=== PATIENT | male | born 1945 | race Caucasian/White ===

== ENCOUNTER 2024-04-01 14:43 | Inpatient (IN) | payer OTHER, MEDICARE ==
--- NOTE | 2024-04-01 16:52 | ED ---
General Adult HPI - General Chief complaint: Extremity Problem,Nontraumatic Stated complaint: Toe wounds, blockage in legs Time Seen by Provider: 04/01/24 15:32 Source: patient, family Mode of arrival: wheelchair Limitations: no limitations - History of Present Illness Initial comments: Pleasant 78-year-old gentleman with past medical history of CAD status post coronary bypass presenting today for left lower extremity wound. Patient was sent over by wound clinic in [place] after he was has been treated for bilateral lower extremity wounds on his toes. He has had worsening redness in the left toes and the wound has been nonhealing despite 10-day course of Bactrim. Patient's doctor sent patient to ED out of concern for "a blood clot" due to poor wound healing. The patient is not on Plavix, aspirin or blood thinners. He denies any chest pain or shortness of breath. Denies fevers or chills. 2 days ago he did have a few episodes of nonbloody nonbilious emesis but otherwise currently denies complaints. States he has some RUQ discomfort but attributes this to multiple episodes of vomiting. Nausea and vomiting have since resolved. - Related Data Home Medications Medication Instructions Recorded Confirmed Acetaminophen [Tylenol] 650 mg PO TID PRN 04/01/24 04/01/24 Aspirin EC [Ecotrin Low Dose] 81 mg PO DAILY 04/01/24 04/01/24 Cholecalciferol [Vitamin D3 (25 25 mcg PO DAILY 04/01/24 04/01/24 Mcg = 1000 Iu)] Dextrose Chew [Glucose Chew Tab] 16 gm PO DAILY PRN 04/01/24 04/01/24 Gabapentin [Neurontin] 100 mg PO BID 04/01/24 04/01/24 Insulin Glargine-Yfgn [Semglee 22 unit SQ BID 04/01/24 04/01/24 (Yfgn) Pen] lisinopriL [Zestril] 5 mg PO DAILY 04/01/24 04/01/24 oxyCODONE HCL [Roxicodone] 5 mg PO Q6H PRN 04/01/24 04/01/24 Allergies Allergy/AdvReac Type Severity Reaction Status Date / Time No Known Allergies Allergy Verified 04/01/24 18:54 Review of Systems ROS Statement: Those systems with pertinent positive or pertinent negative responses have been documented in the HPI. ROS Other: All systems not noted in ROS Statement are negative. Past Medical History Past Medical History: Diabetes Mellitus, Hypertension Past Surgical History: Coronary Bypass/CABG Smoking Status: Former smoker Past Alcohol Use History: None Reported Past Drug Use History: None Reported General Exam - General Exam Comments Initial Comments: PE: CONSTITUTIONAL: No apparent distress, well appearing SKIN: Warm, dry, no jaundice, hives or petechiae; erythema circumference in the distal aspect of the left lower extremity encompassing the toes, black-brown wound/eschar at the distal aspect of the first and second metatarsals, greater than 3 second capillary refill. Small brown eschar at the distal aspect of the right first metatarsal that appears well-healing EYES: Pupils are equally round, extraocular movements intact without nystagmus, clear conjunctiva, non-icteric sclera HENT: Normocephalic, atraumatic, moist mucus membranes, oropharynx clear without exudates NECK: , Full range of motion, normal appearance PULMONARY: Clear to auscultation without wheezes, rhonchi, or rales, normal excursion, no accessory muscle use and no stridor CARDIOVASCULAR: Regular rate, rhythm, normal S1 and S2. No appreciated murmurs, rubs or gallops. Strong radial pulses with intact distal perfusion. No lower extremity edema GASTROINTESTINAL: Soft, active bowel sounds throughout, non-tender, non- distended, no palpable masses, no rebound or guarding. No hepatosplenomegaly, negative collins's sign GENITOURINARY: MUSCULOSKELETAL: Mild swelling of the left ankle, no TTP, no deformity faint DP and PT pulses found with doppler in bilateral LE, toes are warm and appear well perfused bilaterally, no crepitus palpated, extremities have no gross deformity, no edema, redness, or swelling beyond swelling and redness at distal LLE, . No calf swelling NEUROLOGIC:_a/o x 3, GCS 15, normal mentation and speech. Moves all extremities x 4 without motor or sensory deficit PSYCHIATRIC:_normal mood and affect, thought process is clear and linear Limitations: no limitations Course Vital Signs 04/01/24 04/01/24 14:56 17:49 Temperature 97.5 F L Pulse Rate 106 H 95 Respiratory 20 20 Rate Blood Pressure 121/77 121/67 O2 Sat by Pulse 98 96 Oximetry Medical Decision Making - Medical Decision Making Was pt. sent in by a medical professional or institution ([facility], [employer], urgent care, hospital, or fdc...) When possible be specific @ -Patient was sent over from his physician at the wound clinic in [place] Did you speak to anyone other than the patient for history (EMS, parent, family, police, friend...)? What history was obtained from this source I spoke with patient's son who assisted in providing history Did you review nursing and triage notes (agree or disagree)? Why? @ -I reviewed and agree with nursing and triage notes Were old charts reviewed (outside hosp., previous admission, EMS record, old EKG, old radiological studies, urgent care reports/EKG's, fdc records)? Report findings @Medical records reviewed no prior or recent visits to review Differential Diagnosis (chest pain, altered mental status, abdominal pain women, abdominal pain men, vaginal bleeding, weakness, fever, dyspnea, syncope, headache, dizziness, GI bleed, back pain, seizure, CVA, palpatations, mental health, musculoskeletal)? Differential diagnosis remains broad however top considerations include cellulitis, osteomyelitis, dry gangrene, peripheral arterial disease, diabetic foot ulcer this is not an all inclusive list EKG interpreted by me (3pts min.). @ -As above X-rays interpreted by me (1pt min.). @ -None done CT interpreted by me (1pt min.). @ -Contrast appears to perfuse through the bilateral distal LE to dorsal pedis arteries What testing was considered but not performed or refused? (CT, X-rays, U/S, labs)? Why? @ -Heparin was considered out of concern for periveral arterial occlusion however distal aspects of extremities are still pink and warm, there does not appear to be any complete occlusion on CT Did you discuss the management of the patient with other professionals (professionals i.e. M[facility] Mishra, [employer], lab, RT, psych nurse, licensed social worker, spray foam installer, teacher, community arts officer, registered nurse hh case manager)? Give summary @ -No Was smoking cessation discussed for >3mins.? @ -No Was critical care preformed (if so, how long)? @ -No Were there social determinants of health that impacted care today? How? (Homelessness, low income, unemployed, alcoholism, drug addiction, transportation, low edu. Level, literacy, decrease access to med. care, detention, rehab)? @ -No Was there de-escalation of care discussed even if they declined (Discuss DNR or withdrawal of care, Hospice)? @ -No What co-morbidities impacted this encounter? (DM, HTN, Smoking, COPD, CAD, Cancer, CVA, ARF, Chemo, Hep., AIDS, mental health diagnosis, sleep apnea, mo rbid obesity)? CAD, PAD, DM Was patient admitted / discharged? Hospital course, mention meds given and route, prescriptions, significant lab abnormalities, going to OR and other pertinent info. @Admission- This is a pleasant 78 y/o gentleman presenting with his son for nonhealing left foot wound despite adequate wound care and completion of 10 day course abx, w/ additional concern for peripheral arterial disease. Patient well appearing on my assessment, resting comfortably. Erythema to 1-4th metatarsals on left foot, black wound eschar to distal 1st and 2nd metatarsals, slowed cap refill in left foot, right foot has brownish eschar to distal 1st metatarsal without surrounding erythema, faint DP and PT pulses doppler bilaterally. Patient is nontoxic-appearing though he does have respiratory of 20 and tachycardia with infectious source so blood cultures to be obtained, cefepime will be given, 30 cc/kg bolus not given as patient does not appear dehydrated, is not febrile, not hypotensive. Plan for CT angio of the bilateral lower extremities, anticipate admission. Patient noted to have GFR 38, patient does have history of stage III kidney disease, so US of the LE was considered in leiu of CT angio however I was contacted by US, the US needed to perform necessary testing malfunctioning. In order to ensure patient does not require emergent vascular consultation, CT angio will be obtained. Labs significant for creatinine 1.72, AST/ALT 80/288, CRP 22.4, white blood cell count 12.7. Lactic 1.1. CT angiogram shows severe atherosclerotic disease of the bilateral lower extremities, notes gas in the plantar aspect of the soft tissue of the left foot. Patient does not have crepi tus, this does not appear to be rapidly progressing and he is nontoxic-appearing however due to gas noted will give a dose of vancomycin, clindamycin and Flagyl in addition to cefepime. Plan for admission for admission for LLE wound that failed outpatient abx, vascular surgery and podiatry consults. US RUQ ordered due to elevated LFTs and patient's hx vomiting x2 days ago. Patient has benign abdominal exam here with negative collins;s sign. Updated patient to plan for admission and pending [facility]. Currently denies any needs at this time. Case discussed with [facility], who kindly accepts patient for admission. Of note, US resulted while patient boarding in ED. Does show Hydropic gallb ladder with echogenic sludge gallbladder wall is not thickened, 3.1 mm with pericholecysticedema and trace fluid potential interrogation common bile duct was obscured by bowel gas no definite intrahepatic biliary dilation. Will add general surgery consult. Undiagnosed new problem with uncertain prognosis? @ -No Drug Therapy requiring intensive monitoring for toxicity (Heparin, Nitro, Insuli n, Cardizem)? @ -No Were any procedures done? @ -No Diagnosis/symptom? @ -PAD, diabetic foot wound, cellulitis, elevated LFTs Acute, or Chronic, or Acute on Chronic? acute Uncomplicated (without systemic symptoms) or Complicated (systemic symptoms)? complicated Side effects of treatment? @ -No Exacerbation, Progression, or Severe Exacerbation? @ -No Poses a threat to life or bodily function? How? (Chest pain, USA, GA, pneumonia, PE, COPD, DKA, ARF, appy, cholecystitis, CVA, Diverticulitis, Homicidal, Suicidal, threat to staff... and all critical care pts) Yes, if allowed to continue untreated could result in loss of limb/ LLE - Lab Data Result diagrams: 04/01/24 17:24 04/01/24 17:24 Lab Results 04/01/24 04/01/24 04/01/24 Range/Units 17:24 17:24 17:24 WBC 12.7 H (3.8-10.6) k/uL RBC 4.13 L (4.30-5.90) m/uL Hgb 11.5 L (13.0-17.5) gm/dL Hct 36.1 L (39.0-53.0) % MCV 87.3 (80.0-100.0) fL MCH 27.8 (25.0-35.0) pg MCHC 31.8 (31.0-37.0) g/dL RDW 13.3 (11.5-15.5) % Plt Count 295 (150-450) k/uL MPV 8.0 Neutrophils % 90 % Lymphocytes % 5 % Monocytes % 4 % Eosinophils % 0 % Basophils % 0 % Neutrophils # 11.4 H (1.3-7.7) k/uL Lymphocytes # 0.6 L (1.0-4.8) k/uL Monocytes # 0.5 (0-1.0) k/uL Eosinophils # 0.0 (0-0.7) k/uL Basophils # 0.0 (0-0.2) k/uL Hypochromasia Slight PT 11.9 (10.0-12.5) sec INR 1.1 (<1.2) APTT 23.9 (22.0-30.0) sec Sodium 140 (137-145) mmol/L Potassium 4.1 (3.5-5.1) mmol/L Chloride 111 H (98-107) mmol/L Carbon Dioxide 21 L (22-30) mmol/L Anion Gap 8 mmol/L BUN 39 H (9-20) mg/dL Creatinine 1.72 H (0.66-1.25) mg/dL Est GFR (CKD-EPI)AfAm 44 (>60 ml/min/1.73 sqM) Est GFR (CKD-EPI)NonAf 38 (>60 ml/min/1.73 sqM) Glucose 164 H (74-99) mg/dL Plasma Lactic Acid Erwin (0.7-2.0) mmol/L Calcium 9.0 (8.4-10.2) mg/dL Total Bilirubin 0.9 (0.2-1.3) mg/dL AST 80 H (17-59) U/L ALT 288 H (4-49) U/L Alkaline Phosphatase 320 H (38-126) U/L C-Reactive Protein 22.4 H (<1.0) mg/dL Total Protein 7.1 (6.3-8.2) g/dL Albumin 3.4 L (3.5-5.0) g/dL 04/01/24 Range/Units 17:24 WBC (3.8-10.6) k/uL RBC (4.30-5.90) m/uL Hgb (13.0-17.5) gm/dL Hct (39.0-53.0) % MCV (80.0-100.0) fL MCH (25.0-35.0) pg MCHC (31.0-37.0) g/dL RDW (11.5-15.5) % Plt Count (150-450) k/uL MPV Neutrophils % % Lymphocytes % % Monocytes % % Eosinophils % % Basophils % % Neutrophils # (1.3-7.7) k/uL Lymphocytes # (1.0-4.8) k/uL Monocytes # (0-1.0) k/uL Eosinophils # (0-0.7) k/uL Basophils # (0-0.2) k/uL Hypochromasia PT (10.0-12.5) sec INR (<1.2) APTT (22.0-30.0) sec Sodium (137-145) mmol/L Potassium (3.5-5.1) mmol/L Chloride (98-107) mmol/L Carbon Dioxide (22-30) mmol/L Anion Gap mmol/L BUN (9-20) mg/dL Creatinine (0.66-1.25) mg/dL Est GFR (CKD-EPI)AfAm (>60 ml/min/1.73 sqM) Est GFR (CKD-EPI)NonAf (>60 ml/min/1.73 sqM) Glucose (74-99) mg/dL Plasma Lactic Acid Ewrin 1.1 (0.7-2.0) mmol/L Calcium (8.4-10.2) mg/dL Total Bilirubin (0.2-1.3) mg/dL AST (17-59) U/L ALT (4-49) U/L Alkaline Phosphatase (38-126) U/L C-Reactive Protein (<1.0) mg/dL Total Protein (6.3-8.2) g/dL Albumin (3.5-5.0) g/dL Disposition Clinical Impression: Cellulitis, Peripheral vascular disease, Elevated LFTs, Diabetic foot ulcer Disposition: ADMITTED IP TO THIS [facility] Condition: Good
[2024-04-01 17:35] LABS: Basophils % (A) 0 %; Eosinophils % (A) 0 %; HCT 36.1 % (39.0-53.0); HGB 11.5 gm/dL (13.0-17.5); Hypochromasia Slight; Lymphocytes # (A) 0.6 k/uL (1.0-4.8); Lymphocytes % (A) 5 %; MCH 27.8 pg (25.0-35.0); MCHC 31.8 g/dL (31.0-37.0); MCV 87.3 fL (80.0-100.0); Monocytes # (A) 0.5 k/uL (0-1.0); Monocytes % (A) 4 %; Neutrophils # (A) 11.4 k/uL (1.3-7.7); Neutrophils % (A) 90 %; Platelet Count 295 k/uL (150-450); RBC 4.13 m/uL (4.30-5.90); RDW 13.3 % (11.5-15.5); WBC 12.7 k/uL (3.8-10.6)
[2024-04-01 17:44] LABS: INR 1.1 (<1.2); Partial Thromboplastin Time 23.9 sec (22.0-30.0); Prothrombin Time 11.9 sec (10.0-12.5)
[2024-04-01] MEDS: CEFEPIME 2 GM in SODIUM CHLORIDE 0.9% 100 ML IVPB STA (17:48)
[2024-04-01 18:09] LABS: ALT 288 U/L (4-49); AST 80 U/L (17-59); African American GFR (CKD) 44 (>60 ml/min/1.73 sqM); Albumin 3.4 g/dL (3.5-5.0); Alkaline Phosphatase 320 U/L (38-126); Anion Gap 8 mmol/L; Blood Urea Nitrogen 39 mg/dL (9-20); Carbon Dioxide 21 mmol/L (22-30); Chloride 111 mmol/L (98-107); Glucose 164 mg/dL (74-99); Non-African American GFR(CKD) 38 (>60 ml/min/1.73 sqM); Potassium 4.1 mmol/L (3.5-5.1); Sodium 140 mmol/L (137-145); Total Bilirubin 0.9 mg/dL (0.2-1.3); Total Protein 7.1 g/dL (6.3-8.2)
[2024-04-01 18:23] LABS: C Reactive Protein 22.4 mg/dL (<1.0)
--- NOTE | 2024-04-01 20:44 | CT ---
EXAMINATION TYPE: CT angio lower extremity BILAT CT DLP: 786.6 mGycm, Automated exposure control for dose reduction was used. DATE OF EXAM: 04/01/2024 8:24 PM COMPARISON: . . CLINICAL INDICATION:Male, 78 years old with history of decreased pulses, PAD, L>R; PHH, non healing w ounds to both feet, decreased pulse TECHNIQUE: Multiple thin slice sub-millimeter images were obtained after administration of contrast. 3-D reconstructed images and maximum intensity projection images were obtained. CT angio lower extre mity BILAT CT Contrast: Contrast used:80 mL of Isovue 370 with IV Contrast, Oral contrast used: None FINDINGS: CTA Lower extremities: Right: The common femoral and superficial femoral arteries are patent, with focal moderate stenosis o f the distal superficial femoral artery. The popliteal artery is patent. The tibioperoneal trunk as w ell as the origins of the anterior tibial, posterior tibial, and peroneal artery are patent. There is extensive atherosclerotic disease identified of the vessels extending inferiorly with multifocal mod erate to severe stenoses and minimal contrast seen in the distal vessels. Left: The common femoral and superficial femoral arteries are patent. The popliteal artery is patent. Extensive atherosclerotic disease of the anterior tibial, posterior tibial, and peroneal artery with multifocal severe stenoses identified. The anterior tibial artery is seen crossing the ankle joint w ith diminutive appearance of the posterior tibial at the level the ankle. Contrast opacification does dilute at the level of the feet, with suspected additional multifocal narrowings identified of the p lantar vessels. Scattered colonic diverticula are identified. Of note, scattered foci of gas are seen within the plantar surface of the left foot. IMPRESSION 1. Extensive atherosclerotic disease of the lower extremity arterial vessels involving the anterior tibial, posterior tibial, and peroneal arteries bilaterally with multifocal severe stenoses. 2. Gas seen within the soft tissues along the plantar surface of the left foot, likely related to un derlying wound as per history. 3. Colonic diverticulosis. [facility], , 04/01/2024 8:42 PM
[2024-04-01] MEDS: GABAPENTIN 100 MG CAP PO SCH (21:19)
[2024-04-01] MEDS ORDERED: VANCOMYCIN IV PER PHARMACY 1 EACH MISC MISCELLANE PRN (21:30)
[2024-04-01] MEDS ORDERED: CALCIUM CARBONATE 500 MG CHEWABLE PO PRN (21:34)
[2024-04-01] MEDS ORDERED: ACETAMINOPHEN TAB 325 MG TAB PO PRN (21:34)
[2024-04-01] MEDS ORDERED: NALOXONE 0.4 MG/ML 1 ML VIAL IV PRN (21:34)
[2024-04-01] MEDS ORDERED: MAG HYDROX/AL HYDROX/SIMETH 30 ML CUP PO PRN (21:34)
[2024-04-01] MEDS: HEPARIN SODIUM,PORCINE 5,000 UNIT/ML 1 ML VIAL SQ SCH (23:11)
[2024-04-01] MEDS: CLINDAMYCIN 600 MG in DEXTROSE 5% IN WATER 50 ML IVPB SCH (23:12)
--- NOTE | 2024-04-02 00:09 | US ---
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 COMPARISON: No relevant prior studies available. FINDINGS: Liver: The liver measures 12.5 cm in length. Gallbladder: The gallbladder is hydropic in appearance and fully distended. Echogenic sludge noted. The gallbladder wall measures 3.1 mm with associated pericholecystic edema and trace fluid. Potential interrogation for sonographic Gutierrez sign was not documented/performed. Common bile duct: The common bile duct is obscured by bowel gas. No definite intrahepatic biliary dilatation. No stones. Pancreas: The pancreas is obscured by bowel gas pattern. Right kidney: The right kidney measures 11.8 x 6.1 x 5.4 cm. No stones. No hydronephrosis. Free fluid: No free fluid. IMPRESSION: 1. The gallbladder is hydropic in appearance and fully distended. Echogenic sludge noted. The gallbladder wall measures 3.1 mm with associated pericholecystic edema and trace fluid. Potential interrogation for sonographic Gutierrez sign was not documented/performed. Please correlate clinically. 2. The common bile duct is obscured by bowel gas. No definite intrahepatic biliary dilatation.
[2024-04-02] MEDS: metroNIDAZOLE-NS PMX 500 MG in SALINE 1 100ML.BAG IVPB SCH (00:44)
[2024-04-02] MEDS: VANCOMYCIN 1,500 MG in SODIUM CHLORIDE 0.9% 500 ML 500 ML IVPB ONE (02:18)
[2024-04-02 06:08] LABS: Basophils % (A) 0 %; Eosinophils # (A) 0.1 k/uL (0-0.7); Eosinophils % (A) 1 %; HCT 32.3 % (39.0-53.0); HGB 10.1 gm/dL (13.0-17.5); Hypochromasia Slight; Lymphocytes # (A) 1.1 k/uL (1.0-4.8); Lymphocytes % (A) 10 %; MCH 27.6 pg (25.0-35.0); MCHC 31.3 g/dL (31.0-37.0); MCV 88.2 fL (80.0-100.0); Mean Platelet Volume 8.4; Monocytes # (A) 0.5 k/uL (0-1.0); Monocytes % (A) 5 %; Neutrophils # (A) 8.9 k/uL (1.3-7.7); Neutrophils % (A) 83 %; Platelet Count 255 k/uL (150-450); RBC 3.66 m/uL (4.30-5.90); RDW 13.4 % (11.5-15.5); WBC 10.7 k/uL (3.8-10.6)
[2024-04-02 06:36] LABS: African American GFR (CKD) 46 (>60 ml/min/1.73 sqM); Anion Gap 5 mmol/L; Blood Urea Nitrogen 34 mg/dL (9-20); Calcium 8.4 mg/dL (8.4-10.2); Carbon Dioxide 22 mmol/L (22-30); Chloride 113 mmol/L (98-107); Glucose 105 mg/dL (74-99); Non-African American GFR(CKD) 40 (>60 ml/min/1.73 sqM); Potassium 3.7 mmol/L (3.5-5.1); Sodium 140 mmol/L (137-145)
[2024-04-02 07:40] LABS: Glucose,Whole Blood 97 mg/dL (70-110)
[2024-04-02] MEDS: traMADol 50 MG TAB PO PRN (07:54)
[2024-04-02] MEDS: CHOLECALCIFEROL 25 MCG (1000 IU) TABLET PO SCH (07:54)
[2024-04-02] MEDS: ASPIRIN 81 MG PO SCH (07:55)
[2024-04-02] MEDS: lisinopriL 5 MG TAB PO SCH (07:56)
[2024-04-02] MEDS: FAMOTIDINE 20 MG TAB PO SCH (07:56)
[2024-04-02] MEDS: INSULIN DETEMIR (LEVEMIR) 100 UNIT/ML SYR SQ SCH (08:06)
[2024-04-02 09:41] LABS: ALT 210 U/L (4-49); AST 59 U/L (17-59); African American GFR (CKD) 47 (>60 ml/min/1.73 sqM); Albumin/Globulin Ratio 0.9; Alkaline Phosphatase 278 U/L (38-126); Anion Gap 9 mmol/L; Blood Urea Nitrogen 34 mg/dL (9-20); Calcium 8.6 mg/dL (8.4-10.2); Carbon Dioxide 22 mmol/L (22-30); Chloride 110 mmol/L (98-107); Globulin 3.3 g/dL; Glucose 112 mg/dL (74-99); Non-African American GFR(CKD) 40 (>60 ml/min/1.73 sqM); Potassium 3.5 mmol/L (3.5-5.1); Sodium 141 mmol/L (137-145); Total Bilirubin 0.7 mg/dL (0.2-1.3); Total Protein 6.3 g/dL (6.3-8.2)
[2024-04-02] MEDS: CEFEPIME 2 GM in SODIUM CHLORIDE 0.9% 100 ML IVPB SCH (11:33)
--- NOTE | 2024-04-02 12:37 | P.GSCN ---
History of Present Illness Consult date: 04/02/24 History of present illness: CHIEF COMPLAINT: Nonhealing feet wounds HISTORY OF PRESENT ILLNESS: This is a 78-year-old male with wounds on the bilateral lower extremities. He follows at the wound care clinic at [facility]. They recommended that patient comes to the ER for further evaluation due to nonhealing wounds on the feet even after antibiotic treatment. Surgical service has been consulted in regards to hydropic gallbladder. Patient reports having multiple episodes of vomiting on Friday earlier this week. After the vomiting patient had pain across the upper abdomen. He denies eating anything that had spilled. He denies any sick contacts. He denies any fever chills or sweats. But reports after he was done vomiting the abdominal pain has resolved and he is now tolerating diet. He reports regular bowel movements. An abdominal ultrasound had been completed which had shown a hydropic gallbladder with sludge and pericholecystic edema with trace fluid. Patient currently denies any abdominal pain. He did have some mildly elevated LFTs. Patient does report drinking a shot of whiskey nightly for several years. He reports within the last 4 weeks he did stop drinking as requested per his son. Patient is a diabetic and has history of CABG. Denies any prior abdominal surgeries. He is being evaluated by vascular service for peripheral vascular disease with leg wounds. PAST MEDICAL HISTORY: See below PAST SURGICAL HISTORY: See below MEDICATIONS: See below ALLERGIES: See below SOCIAL HISTORY: No illicit drug use. REVIEW OF SYSTEMS: CONSTITUTIONAL: Denies fever or chills. HEENT: Denies blurred vision, vision changes, or eye pain. Denies hemoptysis CARDIOVASCULAR: Denies chest pain or pressure. RESPIRATORY: No shortness of breath. GASTROINTESTINAL: See HPI for pertinent findings HEMATOLOGIC: Denies bleeding disorders. GENITOURINARY: Denies any blood in urine or increased urinary frequency. SKIN: Denies pruitis. Denies rash. PHYSICAL EXAM: VITAL SIGNS: Reviewed GENERAL: Well-developed in no acute distress. HEENT: No sclera icterus. Extraocular movements grossly intact. Moist buccal mucosa. Head is atraumatic, normocephalic. No nasal drainage. ABDOMEN: Soft. Nondistended. Nontender NEUROLOGIC: Alert and oriented. Cranial nerves II through XII grossly intact. LABORATORY DATA: WBC 12.7 down to 10.7 Hgb 10.1 platelets 255 Sodium 141 potassium 3.5 creatinine 1.63 Total bilirubin 0.7 AST 80 down to 59 ALT 288 down to 210 alk phos 320 down to 278 IMAGING: Gallbladder ultrasound reports hydropic gallbladder in appearance and fully distended. Sludge noted. Gallbladder wall measuring 3.1 mm with associated pericholecystic edema and trace fluid. CTA of the legs extensive atherosclerotic disease of the lower extremity arterial vessels. Gas seen within the soft tissues of the plantar surface of the left foot related to underlying wound. ASSESSMENT: 1. Hydropic gallbladder 2. Multiple episodes of vomiting with abdominal pain after vomiting. Now resolved 3. Mildly elevated LFTs PLAN: -CT scan abdomen and pelvis ordered for further evaluation of abdominal pain -Continue regular diet -Further recommendations forthcoming per surgeon Physician Fur Mixer note has been reviewed by physician. Signing provider agrees with the documented findings, assessment, and plan of care. Past Medical History Past Medical History: Diabetes Mellitus, Hypertension Additional Past Medical History / Comment(s): stage 3 CKD History of Any Multi-Drug Resistant Organisms: None Reported Past Surgical History: Coronary Bypass/CABG Smoking Status: Former smoker Past Alcohol Use History: None Reported Past Drug Use History: None Reported Medications and Allergies Home Medications Medication Instructions Recorded Confirmed Type Acetaminophen [Tylenol] 650 mg PO TID PRN 04/01/24 04/01/24 History Aspirin EC [Ecotrin Low Dose] 81 mg PO DAILY 04/01/24 04/01/24 History Cholecalciferol [Vitamin D3 (25 25 mcg PO DAILY 04/01/24 04/01/24 History Mcg = 1000 Iu)] Dextrose Chew [Glucose Chew Tab] 16 gm PO DAILY PRN 04/01/24 04/01/24 History Gabapentin [Neurontin] 100 mg PO BID 04/01/24 04/01/24 History Insulin Glargine-Yfgn [Semglee 22 unit SQ BID 04/01/24 04/01/24 History (Yfgn) Pen] lisinopriL [Zestril] 5 mg PO DAILY 04/01/24 04/01/24 History oxyCODONE HCL [Roxicodone] 5 mg PO Q6H PRN 04/01/24 04/01/24 History Allergies Allergy/AdvReac Type Severity Reaction Status Date / Time No Known Allergies Allergy Verified 04/01/24 18:54 Surgical - Exam Vital Signs Temp Pulse Resp BP Pulse Ox 97.5 F L 106 H 20 121/77 98 04/01/24 14:56 04/01/24 14:56 04/01/24 14:56 04/01/24 14:56 04/01/24 14:56 Results - Labs 04/02/24 05:53 04/02/24 08:55 Abnormal Lab Results - Last 24 Hours (Table) 04/01/24 04/01/24 04/02/24 Range/Units 17:24 17:24 05:53 WBC 12.7 H 10.7 H (3.8-10.6) k/uL RBC 4.13 L 3.66 L (4.30-5.90) m/uL Hgb 11.5 L 10.1 L (13.0-17.5) gm/dL Hct 36.1 L 32.3 L (39.0-53.0) % Neutrophils # 11.4 H 8.9 H (1.3-7.7) k/uL Lymphocytes # 0.6 L (1.0-4.8) k/uL Chloride 111 H (98-107) mmol/L Carbon Dioxide 21 L (22-30) mmol/L BUN 39 H (9-20) mg/dL Creatinine 1.72 H (0.66-1.25) mg/dL Glucose 164 H (74-99) mg/dL AST 80 H (17-59) U/L ALT 288 H (4-49) U/L Alkaline Phosphatase 320 H (38-126) U/L C-Reactive Protein 22.4 H (<1.0) mg/dL Albumin 3.4 L (3.5-5.0) g/dL 04/02/24 04/02/24 Range/Units 05:53 08:55 WBC (3.8-10.6) k/uL RBC (4.30-5.90) m/uL Hgb (13.0-17.5) gm/dL Hct (39.0-53.0) % Neutrophils # (1.3-7.7) k/uL Lymphocytes # (1.0-4.8) k/uL Chloride 113 H 110 H (98-107) mmol/L Carbon Dioxide (22-30) mmol/L BUN 34 H 34 H (9-20) mg/dL Creatinine 1.64 H 1.63 H (0.66-1.25) mg/dL Glucose 105 H 112 H (74-99) mg/dL AST (17-59) U/L ALT 210 H (4-49) U/L Alkaline Phosphatase 278 H (38-126) U/L C-Reactive Protein (<1.0) mg/dL Albumin 3.0 L (3.5-5.0) g/dL Diabetes panel 04/01/24 04/02/24 04/02/24 Range/Units 17: 05:53 08:55 Sodium 140 140 141 (137-145) mmol/L Potassium 4.1 3.7 3.5 (3.5-5.1) mmol/L Chloride 111 H 113 H 110 H (98-107) mmol/L Carbon Dioxide 21 L 22 22 (22-30) mmol/L BUN 39 H 34 H 34 H (9-20) mg/dL Creatinine 1.72 H 1.64 H 1.63 H (0.66-1.25) mg/dL Glucose 164 H 105 H 112 H (74-99) mg/dL Calcium 9.0 8.4 8.6 (8.4-10.2) mg/dL AST 80 H 59 (17-59) U/L ALT 288 H 210 H (4-49) U/L Alkaline Phosphatase 320 H 278 H (38-126) U/L Total Protein 7.1 6.3 (6.3-8.2) g/dL Albumin 3.4 L 3.0 L (3.5-5.0) g/dL Calcium panel 04/01/24 04/02/24 04/02/24 Range/Units 17: 05:53 08:55 Calcium 9.0 8.4 8.6 (8.4-10.2) mg/dL Albumin 3.4 L 3.0 L (3.5-5.0) g/dL Pituitary panel 04/01/24 04/02/24 04/02/24 Range/Units 17:24 05:53 08:55 Sodium 140 140 141 (137-145) mmol/L Potassium 4.1 3.7 3.5 (3.5-5.1) mmol/L Chloride 111 H 113 H 110 H (98-107) mmol/L Carbon Dioxide 21 L 22 22 (22-30) mmol/L BUN 39 H 34 H 34 H (9-20) mg/dL Creatinine 1.72 H 1.64 H 1.63 H (0.66-1.25) mg/dL Glucose 164 H 105 H 112 H (74-99) mg/dL Calcium 9.0 8.4 8.6 (8.4-10.2) mg/dL Adrenal panel 04/01/24 04/02/24 04/02/24 Range/Units 17:24 05:53 08:55 Sodium 140 140 141 (137-145) mmol/L Potassium 4.1 3.7 3.5 (3.5-5.1) mmol/L Chloride 111 H 113 H 110 H (98-107) mmol/L Carbon Dioxide 21 L 22 22 (22-30) mmol/L BUN 39 H 34 H 34 H (9-20) mg/dL Creatinine 1.72 H 1.64 H 1.63 H (0.66-1.25) mg/dL Glucose 164 H 105 H 112 H (74-99) mg/dL Calcium 9.0 8.4 8.6 (8.4-10.2) mg/dL Total Bilirubin 0.9 0.7 (0.2-1.3) mg/dL AST 80 H 59 (17-59) U/L ALT 288 H 210 H (4-49) U/L Alkaline Phosphatase 320 H 278 H (38-126) U/L Total Protein 7.1 6.3 (6.3-8.2) g/dL Albumin 3.4 L 3.0 L (3.5-5.0) g/dL
--- NOTE | 2024-04-02 13:19 | P.CON ---
Consult Note - . Consult date: 04/02/24 Assessment/Plan:: Chief complaint: Necrotic ulcers bilateral lower extremity HPI: This 78-year-old male presenting to the ER with chronic ulcerations to bilateral feet. He states that he is seen in wound care center in [place] for dressing changes. He does Betadine wet-to-dry dressings. He cannot recollect if he has had a vascular procedure in my discussion today. Where that he has poor blood flow. Patient states that he had concern for changes to the left foot becoming more red. He denies any warmth to the foot. He denies any drainage from his wounds today. He rates his pain is a 0 out of 10. He states that these have not been painful for a few years. Vascular: Nonpalpable DP and PT pulse bilateral, CFT less than 3 seconds to digits on the right foot and less than 6 seconds to digits on the left foot. No hair growth distal to the knee. Rubor with dependency of the limbs on the side of the bed today. Skin is thin, shiny, and atrophic. Derm: Patient has dry, stable gangrene to bilateral hallux medially. These measure 1.6 x 1.2 cm and are symmetrical. No surrounding moisture, breakdown or drainage. He also has necrotic ulcer to the left second digit medially at the distal tip. These are all stable dry gangrene at this time. He does have mild erythema to the left foot consistent with peripheral vascular disease in my opinion. This does not appear infectious in nature and I am not seeing any clinical signs of infectious process. No probe to bone is noted. No active drainage. Neuro: Light touch sensation is diminished at the digits and regained at mid tibia. MSK: Gross range of motion intact to the digits. Gross range of motion intact to the ankle joint. Strength 5 out of 5 to all pedal muscle groups crossing ankle joint. No deficiencies. No pain with calf squeeze. Assessment: Peripheral vascular disease Gangrene bilateral foot Plan: In-depth discussion with patient today regarding his clinical findings. Discussed these findings with the nurse that was bedside as well. On evaluation of all dry gangrene I do not recommend any current surgical intervention from a podiatric standpoint. I do recommend a complete vascular workup. Dr. Clark has been consulted for vascular evaluation. If we can increase blood flow to the lower extremity we can better heal these ulcerations. I agree with the Betadine dressings for bilateral lower extremity ulcerations. Eliz Krishna D.P.M., AACFAS
--- NOTE | 2024-04-02 14:29 | CT ---
EXAMINATION TYPE: CT abdomen pelvis wo con CT DLP: 546.3 mGycm, Automated exposure control for dose reduction was used. DATE OF EXAM: 04/02/2024 2:17 PM COMPARISON: CTA bilateral lower extremity 04/01/2024, abdominal ultrasound 04/01/2024 CLINICAL INDICATION:Male, 78 years old with history of abdominal pain; Abdominal pain. TECHNIQUE: Standard CT of the abdomen and pelvis without IV or oral contrast. Lack of IV or oral co ntrast limits evaluation of solid and hollow organ viscera. Coronal and sagittal reformats were perfo rmed. FINDINGS: LOWER CHEST: Median sternotomy wires. Right middle lobe linear scarring with bronchiectasis and punct ate calcified granulomas. Mild prominent heart with coronary artery calcifications. Epicardial leads are identified. ABDOMEN LIVER: Unremarkable noncontrast appearance GALLBLADDER AND BILE DUCTS: Large gallbladder with surrounding edema and fluid. Gallstones identified . Suggested gallstones within the cystic duct. No definitively ductal dilatation. PANCREAS: Unremarkable noncontrast appearance. SPLEEN: Punctate calcified granuloma. ADRENAL GLANDS: Unremarkable. KIDNEYS AND URETERS: No evidence of hydronephrosis or renal calculus. The ureters are unremarkable. PELVIS BLADDER: Contrast is demonstrated within the urinary bladder without filling defect from prior CTA ye sterday. REPRODUCTIVE: Coarse calcifications of the prostate gland are identified. Prominent prostate gland me asuring up to 4.8 cm in diameter. ABDOMEN & PELVIS STOMACH AND BOWEL: The stomach appears unremarkable. There is some wall thickening and surrounding in flammatory changes involving the proximal duodenum.Sigmoid diverticulosis without evidence for acute diverticulitis. No focal bowel wall thickening or surrounding inflammatory changes. The appendix is w ithin normal limits. No evidence of bowel obstruction. PERITONEUM: No evidence of pneumoperitoneum. Trace perihepatic ascites. VASCULATURE: Moderate atherosclerotic calcifications are present throughout the abdominal aorta and i ts branches. Infrarenal fusiform abdominal aortic aneurysm measuring 3.9 x 3.8 cm. Aneurysmal dilatat ion of the right common iliac artery measuring up to 2.0 cm. Aneurysmal dilatation of the left common iliac artery measured 2.1 cm. MUSCULOSKELETAL: No acute osseous abnormalities. Mild disc degeneration changes are present throughou t the thoracolumbar spine. LYMPH NODES: No gross evidence for lymphadenopathy. SOFT TISSUE/ABDOMINAL WALL: Few foci gas within the left anterior abdominal wall subcutaneous tissues likely related to medication injection. IMPRESSION: 1. Findings concerning for acute cholecystitis with hydropic gallbladder and surrounding inflammator y changes with gallstones. Suggesting gallstones within the cystic duct. 2. Inflammatory changes involving the proximal duodenum likely related to #1. 3. Trace perihepatic ascites likely related to #1. 4. Colonic diverticulosis without evidence for acute diverticulitis. 5. Infrarenal abdominal aortic aneurysm measuring up to 3.9 cm. Additional bilateral common iliac art yudith aneurysms. [facility], , 04/02/2024 2:27 PM
--- NOTE | 2024-04-02 15:16 | P.HPIM ---
History of Present Illness H&P Date: 04/02/24 History of present illness; Patient is a 78-year-old male with CAD with history of CABG, diabetes mellitus who presents for lower extremity wound. He states that this has been an ongoing problem for the last 6 to 7 weeks. Patient states he has been seen in [place] for 2 sessions of wound care for his ulcerating wounds of his left and right distal foot and toes. Patient states he had 2 sessions and had been on Bactrim for 10 days which had not improved his foot pain or ulcerations as much as ex pected. It seems that he is not taking regular medication for CAD other than daily aspirin. Also, patient did have some nausea vomiting with abdominal pain mostly in the right upper quadrant that has since resolved. Currently patient reports absence of fever, chills, chest pain, dyspnea, cough, nausea, vomiting, abdominal pain, dizziness, headache, and dysuria. Initial lab evaluation in ER significant for WBC 12.7, hemoglobin 11.5, sodium 140, bicarb 21, gap 8, BUN 39, creatinine 1.72, glucose 164, AST 80, ALT 288, ALP 320, CRP 22.4. CT angiogram of bilateral lower extremities significant for extensive atherosclerotic disease of lower extremity arterial vessels involving the anterior tibial, posterior tibial and peroneal arteries bilateral with multi focal severe stenosis. Also with gas seen in soft tissues along plantar surface of left foot, likely related to wound. Ultrasound abdominal right upper quadrant significant for hydropic gallbladder fully distended, echogenic sludge with pericholestatic edema Spoke with the ER physician, patient admission was accepted by internal medicine service for treatment. REVIEW OF SYSTEMS: Pertinent positives and negatives noted in HPI. PHYSICAL EXAMINATION: Vitals reviewed GENERAL: No acute distress. Well developed, well nourished. HEENT: Pupils are round and equally reacting to light. EOMI. No scleral icterus. Normocephalic, atraumatic. CARDIOVASCULAR: S1 and S2 present. No murmurs, rubs, or gallops. PULMONARY: Chest is clear to auscultation, no wheezing, rhonchi, or crackles. ABDOMEN: Soft, nontender, nondistended, normoactive bowel sounds. No palpable organomegaly. MUSCULOSKELETAL: No apparent joint swelling and deformities. EXTREMITIES: Left foot with findings of distal ulceration and first and second toe, distal ulceration of right first toe. Nontender with some erythema. No apparent cyanosis, clubbing, or pedal edema. NEUROLOGICAL: The patient is alert and oriented x3, Gross neurological examination did not reveal any focal deficits. SKIN: No apparent rashes. Assessment and plan Patient is a 78-year-old male with CAD with history of CABG who presents for lower extremity wound. # Symptomatic peripheral artery disease of right lower extremity CT angio as above, significant atherosclerotic disease of lower extremities -Aspirin 81 p.o. daily Lipid panel pending, plan to begin Lipitor 80 p.o. mg daily Continue antibiotics -Wound care, ID, and vascular surgery consulted #Hydropic gallbladder likely due to acute cholecystitis, choledocholithiasis #Nausea vomiting Ultrasound as above Initial ALP 320, AST 80, ALT 288 Continue Maalox, Tums, Pepcid for symptomatic treatment of nausea and vomiting Continue vancomycin, cefepime, metronidazole Blood culture pending CTAP findings concerning for acute cholecystitis with surrounding inflammatory changes with gallstones, possible gallstone and cystic duct General Surgery following #NITIN Initial BUN 39, creatinine 1.72 Continue to monitor Chronic Medical Conditions # Essential hypertension - Resume home Lisinopril #Diabetes mellitus, type 2 Holding oral medications Begin Accu-Cheks and low-dose sliding scale, monitor for hypoglycemia Resume home long-acting insulin 22 units twice daily #Coronary artery disease Resume daily aspirin F: P.o. E: Replete as needed N: Heart healthy diet DVT ppx: Subq heparin 5000 units every 8 hours Code status: Full code Anticipated discharge place: Home Anticipated discharge time: 2 to 3 days Dictation was produced using [employer] dictation software. Please excuse any grammatical, word or spelling errors. Attestation I have seen and examined this patient with my resident , discussed the same with the resident/JOHNSON, and agree with the dictator's assessment and plan as written Dr. Carlos frankel Past Medical History Past Medical History: Diabetes Mellitus, Hypertension Additional Past Medical History / Comment(s): stage 3 CKD History of Any Multi-Drug Resistant Organisms: None Reported Past Surgical History: Coronary Bypass/CABG Smoking Status: Former smoker Past Alcohol Use History: None Reported Past Drug Use History: None Reported Medications and Allergies Home Medications Medication Instructions Recorded Confirmed Type Acetaminophen [Tylenol] 650 mg PO TID PRN 04/01/24 04/01/24 History Aspirin EC [Ecotrin Low Dose] 81 mg PO DAILY 04/01/24 04/01/24 History Cholecalciferol [Vitamin D3 (25 25 mcg PO DAILY 04/01/24 04/01/24 History Mcg = 1000 Iu)] Dextrose Chew [Glucose Chew Tab] 16 gm PO DAILY PRN 04/01/24 04/01/24 History Gabapentin [Neurontin] 100 mg PO BID 04/01/24 04/01/24 History Insulin Glargine-Yfgn [Semglee 22 unit SQ BID 04/01/24 04/01/24 History (Yfgn) Pen] lisinopriL [Zestril] 5 mg PO DAILY 04/01/24 04/01/24 History oxyCODONE HCL [Roxicodone] 5 mg PO Q6H PRN 04/01/24 04/01/24 History Allergies Allergy/AdvReac Type Severity Reaction Status Date / Time No Known Allergies Allergy Verified 04/01/24 18:54 Physical Exam Vitals: Vital Signs Temp Pulse Pulse Resp BP BP Pulse Ox 04/02/24 08:28 98.1 F 83 20 128/76 92 L 04/02/24 08:15 86 20 118/75 98 04/02/24 07:37 82 20 132/75 96 04/02/24 02:19 80 18 130/80 95 04/01/24 17:49 95 20 121/67 96 04/01/24 14:56 97.5 F L 106 H 20 121/77 98 Intake and Output 04/01/24 04/02/24 04/02/24 22:59 06:59 14:59 Other: Weight 83.915 kg Results CBC & Chem 7: 04/02/24 05:53 04/03/24 06:15 Labs: Abnormal Lab Results - Last 24 Hours (Table) 04/01/24 04/01/24 04/02/24 Range/Units 17:24 17:24 05:53 WBC 12.7 H 10.7 H (3.8-10.6) k/uL RBC 4.13 L 3.66 L (4.30-5.90) m/uL Hgb 11.5 L 10.1 L (13.0-17.5) gm/dL Hct 36.1 L 32.3 L (39.0-53.0) % Neutrophils # 11.4 H 8.9 H (1.3-7.7) k/uL Lymphocytes # 0.6 L (1.0-4.8) k/uL Chloride 111 H (98-107) mmol/L Carbon Dioxide 21 L (22-30) mmol/L BUN 39 H (9-20) mg/dL Creatinine 1.72 H (0.66-1.25) mg/dL Glucose 164 H (74-99) mg/dL AST 80 H (17-59) U/L ALT 288 H (4-49) U/L Alkaline Phosphatase 320 H (38-126) U/L C-Reactive Protein 22.4 H (<1.0) mg/dL Albumin 3.4 L (3.5-5.0) g/dL 04/02/24 04/02/24 Range/Units 05:53 08:55 WBC (3.8-10.6) k/uL RBC (4.30-5.90) m/uL Hgb (13.0-17.5) gm/dL Hct (39.0-53.0) % Neutrophils # (1.3-7.7) k/uL Lymphocytes # (1.0-4.8) k/uL Chloride 113 H 110 H (98-107) mmol/L Carbon Dioxide (22-30) mmol/L BUN 34 H 34 H (9-20) mg/dL Creatinine 1.64 H 1.63 H (0.66-1.25) mg/dL Glucose 105 H 112 H (74-99) mg/dL AST (17-59) U/L ALT 210 H (4-49) U/L Alkaline Phosphatase 278 H (38-126) U/L C-Reactive Protein (<1.0) mg/dL Albumin 3.0 L (3.5-5.0) g/dL Thrombosis Risk Factor Assmnt - Choose All That Apply Any of the Below Risk Factors Present?: No Other Risk Factors: No Thrombosis Risk Factor Assessment Level: Very Low Risk
[2024-04-02 18:34] LABS: Chol/HDL Ratio 2.98 Ratio; LDL Cholesterol,Calculated 61.1 mg/dL (0.0-131.0); VLDL Calculation 13.26 mg/dL (5.00-40.00)
--- NOTE | 2024-04-02 18:35 | P.GSCN ---
History of Present Illness Consult date: 04/02/24 History of present illness: Bella is a 78-year-old male with bilateral lower extremity wounds for the past few months who has been treated at [facility]. He continues to have nonhealing of the wounds and therefore due to this was sent to the hospital for further workup and antibiotic treatment. He states that he denies any claudication type issues, no cramping in his feet, no pain in his calves or feet.. He denies any concerns with ambulation. He says that overall thing that stops him from ambulating any further is general tiredness. Past Medical History Past Medical History: Diabetes Mellitus, Hypertension Additional Past Medical History / Comment(s): stage 3 CKD History of Any Multi-Drug Resistant Organisms: None Reported Past Surgical History: Coronary Bypass/CABG Smoking Status: Former smoker Past Alcohol Use History: None Reported Past Drug Use History: None Reported Medications and Allergies Home Medications Medication Instructions Recorded Confirmed Type Acetaminophen [Tylenol] 650 mg PO TID PRN 04/01/24 04/01/24 History Aspirin EC [Ecotrin Low Dose] 81 mg PO DAILY 04/01/24 04/01/24 History Cholecalciferol [Vitamin D3 (25 25 mcg PO DAILY 04/01/24 04/01/24 History Mcg = 1000 Iu)] Dextrose Chew [Glucose Chew Tab] 16 gm PO DAILY PRN 04/01/24 04/01/24 History Gabapentin [Neurontin] 100 mg PO BID 04/01/24 04/01/24 History Insulin Glargine-Yfgn [Semglee 22 unit SQ BID 04/01/24 04/01/24 History (Yfgn) Pen] lisinopriL [Zestril] 5 mg PO DAILY 04/01/24 04/01/24 History oxyCODONE HCL [Roxicodone] 5 mg PO Q6H PRN 04/01/24 04/01/24 History Allergies Allergy/AdvReac Type Severity Reaction Status Date / Time No Known Allergies Allergy Verified 04/01/24 18:54 Surgical - Exam Vital Signs Temp Pulse Resp BP Pulse Ox 97.5 F L 106 H 20 121/77 98 04/01/24 14:56 04/01/24 14:56 04/01/24 14:56 04/01/24 14:56 04/01/24 14:56 General Is a pleasant and cooperative elderly male in no acute distress. HEENT is normocephalic, atraumatic, extraocular intact. Eating dinner without issue. Abdomen is soft, nontender nondistended. Palpable femoral pulses. Difficult to palpate popliteal pulses. 1+ left DP, nonpalpable PT, 1+ right DP, difficult to palpate but appreciate potential PT. There are ulcerations at the great toe at the medial portions bilaterally. The second toe on the left there is ulceration with some contracture of skin. Mildly edematous, potential chronic osteomyelitis in appearance. No hair below the calves. Results CT scan reviewed. Widely patent larger vessels. Difficult to visualize the below knee tibial vessels due to mild calcific disease and poor contrast timing. - Labs 04/02/24 05:53 04/02/24 08:55 Abnormal Lab Results - Last 24 Hours (Table) 04/02/24 04/02/24 04/02/24 Range/Units 05:53 05:53 08:55 WBC 10.7 H (3.8-10.6) k/uL RBC 3.66 L (4.30-5.90) m/uL Hgb 10.1 L (13.0-17.5) gm/dL Hct 32.3 L (39.0-53.0) % Neutrophils # 8.9 H (1.3-7.7) k/uL Chloride 113 H 110 H (98-107) mmol/L BUN 34 H 34 H (9-20) mg/dL Creatinine 1.64 H 1.63 H (0.66-1.25) mg/dL Glucose 105 H 112 H (74-99) mg/dL ALT 210 H (4-49) U/L Alkaline Phosphatase 278 H (38-126) U/L Albumin 3.0 L (3.5-5.0) g/dL Diabetes panel 04/02/24 04/02/24 Range/Units 05:53 08:55 Sodium 140 141 (137-145) mmol/L Potassium 3.7 3.5 (3.5-5.1) mmol/L Chloride 113 H 110 H (98-107) mmol/L Carbon Dioxide 22 22 (22-30) mmol/L BUN 34 H 34 H (9-20) mg/dL Creatinine 1.64 H 1.63 H (0.66-1.25) mg/dL Glucose 105 H 112 H (74-99) mg/dL Calcium 8.4 8.6 (8.4-10.2) mg/dL AST 59 (17-59) U/L ALT 210 H (4-49) U/L Alkaline Phosphatase 278 H (38-126) U/L Total Protein 6.3 (6.3-8.2) g/dL Albumin 3.0 L (3.5-5.0) g/dL Calcium panel 04/02/24 04/02/24 Range/Units 05:53 08:55 Calcium 8.4 8.6 (8.4-10.2) mg/dL Albumin 3.0 L (3.5-5.0) g/dL Pituitary panel 04/02/24 04/02/24 Range/Units 05:53 08:55 Sodium 140 141 (137-145) mmol/L Potassium 3.7 3.5 (3.5-5.1) mmol/L Chloride 113 H 110 H (98-107) mmol/L Carbon Dioxide 22 22 (22-30) mmol/L BUN 34 H 34 H (9-20) mg/dL Creatinine 1.64 H 1.63 H (0.66-1.25) mg/dL Glucose 105 H 112 H (74-99) mg/dL Calcium 8.4 8.6 (8.4-10.2) mg/dL Adrenal panel 04/02/24 04/02/24 Range/Units 05:53 08:55 Sodium 140 141 (137-145) mmol/L Potassium 3.7 3.5 (3.5-5.1) mmol/L Chloride 113 H 110 H (98-107) mmol/L Carbon Dioxide 22 22 (22-30) mmol/L BUN 34 H 34 H (9-20) mg/dL Creatinine 1.64 H 1.63 H (0.66-1.25) mg/dL Glucose 105 H 112 H (74-99) mg/dL Calcium 8.4 8.6 (8.4-10.2) mg/dL Total Bilirubin 0.7 (0.2-1.3) mg/dL AST 59 (17-59) U/L ALT 210 H (4-49) U/L Alkaline Phosphatase 278 H (38-126) U/L Total Protein 6.3 (6.3-8.2) g/dL Albumin 3.0 L (3.5-5.0) g/dL Assessment and Plan Assessment: Nonhealing bilateral lower extremity wounds Plan: Reviewed the CT scan, may have some degree of tibial disease however difficult to elicit on the CT scan. Will check ABIs and further plan pending. No significant drainage at this time from the wounds, appear dry in nature. No em ergent surgical intervention at this time
[2024-04-02 20:47] LABS: Glucose,Whole Blood 158 mg/dL (70-110)
[2024-04-02] MEDS: VANCOMYCIN 1,500 MG in SODIUM CHLORIDE 0.9% 500 ML 500 ML IVPB SCH (22:44)
[2024-04-02] MEDS ORDERED: CEFEPIME 2 GM in SODIUM CHLORIDE 0.9% 100 ML IVPB SCH (23:00)
--- NOTE | 2024-04-02 23:29 | P.CONS ---
History of Present Illness - Reason for Consult Consult date: 04/02/24 Nonhealing lower extremity wound and cellulitis Requesting physician: Carlos Smith - Chief Complaint Bilateral foot wound nonhealing and redness x days - History of Present Illness Patient is a 78-year-old male with a past medical history significant for diabetes mellitus hypertension presenting to the hospital for evaluation of foot wound patient mention he still having a wound on the medial aspect of his right big toe and the second toe going on for about evaluated and treated at the wound care center antibiotics (has completed a course of Bactrim DS patient did have nonhealing of the wound and with concern for possible bacterial correlation he has been sent to the hospital for further evaluation patient denies having any fever or any chills no fever have been recorded on presentation to the hospital patient was not tachycardic hypotensive or hypoxic he did have a white count of 12.7 with a left shift creatinine has been mildly elevated as well as elevated liver enzymes patient did have lower extremity CT did shows extensive atherosclerotic disease of the lower extremity gas seen within the soft tissue along the plantar aspect of the left foot likely related to her underlying wound patient has been treated with cefepime and clindamycin infectious disease has been consulted for further management Review of Systems Positive point and negatives has been mentioned in the HPI, complete review of systems was performed and all other systems are negative Past Medical History Past Medical History: Diabetes Mellitus, Hypertension Additional Past Medical History / Comment(s): stage 3 CKD History of Any Multi-Drug Resistant Organisms: None Reported Past Surgical History: Coronary Bypass/CABG Smoking Status: Former smoker Past Alcohol Use History: None Reported Past Drug Use History: None Reported Medications and Allergies Home Medications Medication Instructions Recorded Confirmed Type Acetaminophen [Tylenol] 650 mg PO TID PRN 04/01/24 04/01/24 History Aspirin EC [Ecotrin Low Dose] 81 mg PO DAILY 04/01/24 04/01/24 History Cholecalciferol [Vitamin D3 (25 25 mcg PO DAILY 04/01/24 04/01/24 History Mcg = 1000 Iu)] Dextrose Chew [Glucose Chew Tab] 16 gm PO DAILY PRN 04/01/24 04/01/24 History Gabapentin [Neurontin] 100 mg PO BID 04/01/24 04/01/24 History Insulin Glargine-Yfgn [Semglee 22 unit SQ BID 04/01/24 04/01/24 History (Yfgn) Pen] lisinopriL [Zestril] 5 mg PO DAILY 04/01/24 04/01/24 History oxyCODONE HCL [Roxicodone] 5 mg PO Q6H PRN 04/01/24 04/01/24 History Allergies Allergy/AdvReac Type Severity Reaction Status Date / Time No Known Allergies Allergy Verified 04/01/24 18:54 Physical Exam Vitals: Vital Signs Temp Pulse Pulse Resp BP BP Pulse Ox 04/02/24 08:28 98.1 F 83 20 128/76 92 L 04/02/24 08:15 86 20 118/75 98 04/02/24 07:37 82 20 132/75 96 04/02/24 02:19 80 18 130/80 95 04/01/24 17:49 95 20 121/67 96 04/01/24 14:56 97.5 F L 106 H 20 121/77 98 Intake and Output 04/01/24 04/02/24 04/02/24 22:59 06:59 14:59 Other: Weight 83.915 kg GENERAL DESCRIPTION: Elderly male lying in bed, no distress. No tachypnea or accessory muscle of respiration use. HEENT: Shows Pallor , no scleral icterus. Oral mucous membrane is dry. No pharyngeal erythema or thrush NECK: Trachea central, no thyromegaly. LUNGS: Unlabored breathing. Clear to auscultation anteriorly. No wheeze or crackle. HEART: S1, S2, regular rate and rhythm. No loud murmur ABDOMEN: Soft, no tenderness , guarding or rigidity, no organomegaly EXTREMITIES: Patient did have a dry scabs to bilateral big toe on the medial aspect no swelling redness no foul-smelling drainage SKIN: No rash, no masses palpable. NEUROLOGICAL: The patient is awake, alert, oriented x3, mood and affect normal. Results CBC & Chem 7: 04/02/24 05:53 04/02/24 08:55 Labs: Abnormal Lab Results - Last 24 Hours (Table) 04/01/24 04/01/24 04/02/24 Range/Units 17:24 17:24 05:53 WBC 12.7 H 10.7 H (3.8-10.6) k/uL RBC 4.13 L 3.66 L (4.30-5.90) m/uL Hgb 11.5 L 10.1 L (13.0-17.5) gm/dL Hct 36.1 L 32.3 L (39.0-53.0) % Neutrophils # 11.4 H 8.9 H (1.3-7.7) k/uL Lymphocytes # 0.6 L (1.0-4.8) k/uL Chloride 111 H (98-107) mmol/L Carbon Dioxide 21 L (22-30) mmol/L BUN 39 H (9-20) mg/dL Creatinine 1.72 H (0.66-1.25) mg/dL Glucose 164 H (74-99) mg/dL AST 80 H (17-59) U/L ALT 288 H (4-49) U/L Alkaline Phosphatase 320 H (38-126) U/L C-Reactive Protein 22.4 H (<1.0) mg/dL Albumin 3.4 L (3.5-5.0) g/dL 04/02/24 04/02/24 Range/Units 05:53 08:55 WBC (3.8-10.6) k/uL RBC (4.30-5.90) m/uL Hgb (13.0-17.5) gm/dL Hct (39.0-53.0) % Neutrophils # (1.3-7.7) k/uL Lymphocytes # (1.0-4.8) k/uL Chloride 113 H 110 H (98-107) mmol/L Carbon Dioxide (22-30) mmol/L BUN 34 H 34 H (9-20) mg/dL Creatinine 1.64 H 1.63 H (0.66-1.25) mg/dL Glucose 105 H 112 H (74-99) mg/dL AST (17-59) U/L ALT 210 H (4-49) U/L Alkaline Phosphatase 278 H (38-126) U/L C-Reactive Protein (<1.0) mg/dL Albumin 3.0 L (3.5-5.0) g/dL Assessment and Plan (1) Cellulitis Current Visit: Yes Status: Acute Code(s): L03.90 - CELLULITIS, UNSPECIFIED SNOMED Code(s): 864488005 (2) Diabetic foot ulcer Current Visit: Yes Status: Acute Code(s): E11.621 - TYPE 2 DIABETES MELLITUS WITH FOOT ULCER; L97.509 - NON-PRESSURE CHRONIC ULCER OTH PRT UNSP FOOT W UNSP SEVERITY SNOMED Code(s): 854884489 Plan: 1patient with a nonhealing wound to bilateral feet area more marked on the left foot right side in this patient who did have a significant PAD concerning for nonhealing of his wound and failure" patient oral antibiotic therapy 2-await surgical evaluation for possible debridement and deep culture 3-continue the clindamycin cefepime while waiting for the workup to be completed We will follow on clinical condition and cultures to further adjust medication if needed Thank you for this consultation we will follow the patient along with you Dictation was produced using [employer] dictation software. please excuse any grammatical, word or spelling errors. Time with Patient: Greater than 30
[2024-04-03] MEDS: CLINDAMYCIN 600 MG in DEXTROSE 5% IN WATER 50 ML IVPB SCH (03:04)
[2024-04-03 07:22] LABS: ALT 182 U/L (4-49); AST 59 U/L (17-59); African American GFR (CKD) 49 (>60 ml/min/1.73 sqM); Albumin 2.7 g/dL (3.5-5.0); Albumin/Globulin Ratio 0.8; Alkaline Phosphatase 232 U/L (38-126); Anion Gap 9 mmol/L; Blood Urea Nitrogen 30 mg/dL (9-20); Calcium 8.2 mg/dL (8.4-10.2); Carbon Dioxide 22 mmol/L (22-30); Chloride 111 mmol/L (98-107); Globulin 3.2 g/dL; Non-African American GFR(CKD) 42 (>60 ml/min/1.73 sqM); Potassium 3.7 mmol/L (3.5-5.1); Sodium 142 mmol/L (137-145); Total Bilirubin 0.5 mg/dL (0.2-1.3); Total Protein 5.9 g/dL (6.3-8.2)
[2024-04-03 07:25] LABS: Glucose,Whole Blood 38 mg/dL (70-110)
[2024-04-03 07:27] LABS: Glucose,Whole Blood 46 mg/dL (70-110)
[2024-04-03 07:31] LABS: Glucose 44 mg/dL (74-99)
[2024-04-03 07:52] LABS: Glucose,Whole Blood 73 mg/dL (70-110)
[2024-04-03 09:17] LABS: Basophils # (A) 0.03 X 10*3/uL (0.00-0.10); Basophils % (A) 0.3 %; Eosinophils # (A) 0.09 X 10*3/uL (0.04-0.35); Eosinophils % (A) 0.8 %; HGB 9.6 g/dL (13.0-17.0); Lymphocytes # (A) 1.14 X 10*3/uL (0.90-5.00); MCH 27.1 pg (27.0-32.0); MCV 87.6 FL (80.0-97.0); Mean Platelet Volume 10.2 FL (9.5-12.2); Monocytes # (A) 0.79 X 10*3/uL (0.20-1.00); Monocytes % (A) 6.9 %; NRBC Per 100 WBC 0 X 10*3/uL (0.00-0.01); Neutrophils # (A) 9.26 X 10*3/uL (1.80-7.70); Neutrophils % (A) 81.4 %; Platelet Count 262 X 10*3/uL (140-440); RBC 3.54 X 10*6/uL (4.40-5.60); RDW 13.6 % (11.5-14.5); WBC 11.38 X 10*3/uL (4.50-10.00)
[2024-04-03] MEDS ORDERED: DEXTROSE 50% SYRINGE 50 ML IVP PRN (10:13)
--- NOTE | 2024-04-03 10:33 | P.PN ---
Subjective Progress Note Date: 04/03/24 Principal diagnosis: Cholecystitis Patient denies nausea or vomiting. Still has no abdominal discomfort. CAT scan was performed yesterday showing a large hydropic gallbladder with thickened gallbladder wall and possible stone at the cystic duct. Liver enzymes are improved. Still having foot pain. He is afebrile. White blood cell count mildly elevated. Objective - Vital Signs Vital signs: Vital Signs Temp 97.8 F 04/03/24 07:34 Pulse 76 04/03/24 07:34 Resp 18 04/03/24 07:34 BP 145/74 04/03/24 07:34 Pulse Ox 96 04/03/24 07:34 FiO2 Intake & Output 04/02/24 04/03/24 04/03/24 18:59 06:59 18:59 Intake Total 598 Balance 598 Weight 83.915 kg 80.4 kg Intake: Oral 598 Other: # Voids 3 - Exam Abdomen: Soft, nondistended, minimal right upper quadrant tenderness - Labs CBC & Chem 7: 04/03/24 06:15 04/03/24 06:15 Labs: Abnormal Lab Results - Last 24 Hours (Table) 04/02/24 04/02/24 04/03/24 Range/Units 08:55 20:46 06:15 WBC (4.50-10.00) X 10*3/uL RBC (4.40-5.60) X 10*6/uL Hgb (13.0-17.0) g/dL Hct (39.6-50.0) % MCHC (32.0-37.0) g/dL Immature Gran # (0.00-0.04) X 10*3/uL Neutrophils # (1.80-7.70) X 10*3/uL Chloride 111 H (98-107) mmol/L BUN 30 H (9-20) mg/dL Creatinine 1.57 H (0.66-1.25) mg/dL Glucose 44 L* (74-99) mg/dL POC Glucose (mg/dL) 158 H (70-110) mg/dL Calcium 8.2 L (8.4-10.2) mg/dL ALT 182 H (4-49) U/L Alkaline Phosphatase 232 H (38-126) U/L Total Protein 5.9 L (6.3-8.2) g/dL Albumin 2.7 L (3.5-5.0) g/dL HDL Cholesterol 37.60 L (40.00-60.00) mg/dL 04/03/24 04/03/24 04/03/24 Range/Units 06:15 07:24 07:26 WBC 11.38 H (4.50-10.00) X 10*3/uL RBC 3.54 L (4.40-5.60) X 10*6/uL Hgb 9.6 L (13.0-17.0) g/dL Hct 31.0 L (39.6-50.0) % MCHC 31.0 L (32.0-37.0) g/dL Immature Gran # 0.07 H (0.00-0.04) X 10*3/uL Neutrophils # 9.26 H (1.80-7.70) X 10*3/uL Chloride (98-107) mmol/L BUN (9-20) mg/dL Creatinine (0.66-1.25) mg/dL Glucose (74-99) mg/dL POC Glucose (mg/dL) 38 L* 46 L* (70-110) mg/dL Calcium (8.4-10.2) mg/dL ALT (4-49) U/L Alkaline Phosphatase (38-126) U/L Total Protein (6.3-8.2) g/dL Albumin (3.5-5.0) g/dL HDL Cholesterol (40.00-60.00) mg/dL Microbiology - Last 24 Hours (Table) 04/01/24 17:24 Blood Culture - Preliminary Blood Assessment and Plan (1) Acute cholecystitis Narrative/Plan: 78-year-old male with acute cholecystitis by imaging. Patient did have episodes of vomiting at home that he says were fairly violent. Interestingly he does not have much discomfort. Only minimal tenderness. Options reviewed. I do believe it is better to remove the gallbladder now then allow chronic inflammation to worsen. Patient is agreeable with that plan. Will proceed with laparoscopic, possible open cholecystectomy tomorrow. Risks of bleeding, infection, bile leak, bile duct injury, retained common bile duct stone, trocar injury, conversion to an open procedure, hernia, anesthesia related complications were reviewed. The patient understands and wishes to proceed. Continue antibiotics. Current Visit: Yes Status: Acute Code(s): K81.0 - ACUTE CHOLECYSTITIS SNOMED Code(s): 20947648
[2024-04-03 12:10] LABS: Glucose,Whole Blood 299 mg/dL (70-110)
--- NOTE | 2024-04-03 12:23 | US ---
EXAMINATION TYPE: US arterial LE multi level DATE OF EXAM: 04/03/2024 11:43 AM COMPARISONS: None. CLINICAL INDICATION: Male, 78 years old with history of BLE wounds; non healing ulcers TECHNIQUE: Systolic pressures were taken of the upper and lower extremity arteries with ankle-brachia l indices and toe brachial indices calculated bilaterally. History of: Smoker: Yes Hypertension: Yes Diabetic: Yes Hyperlipidemia: No TIA/CVA: No Previous Vascular Surgery: No CAD: No SD: No Vascular Ulcers: Bilateral Claudication: Bilateral Gangrene: No FINDINGS: Doppler Waveforms: Right: Multiphasic Left: Multiphasic Brachial Artery systolic pressure: Right: deferred due to IV Left: 140 Posterior Tibial artery systolic pressure: Right: 88 Left: 77 Dorsalis Pedis artery systolic pressure: Right: 130 calf - cno thigh - 195 Left: 121 calf - cno thigh - cno Toe artery systolic pressure: Right: CNO Left: CNO Ankle-Brachial Indices: Right: 0.93 Left: 0.86 (Vessel hardening > 1.4; Normal 0.9 - 1.4, Moderate 0.7 - 0.9, Severe 0.5-0.7) Toe Brachial Indices: Right: cno Left: cno (Normal > 0.6; Mild 0.35 - 0.59, Moderate 0.12 - 0.34, Severe <0.12) IMPRESSION: Mild left peripheral vascular disease and normal right biapical brachial indices. [facility], , 04/03/2024 12:20 PM
[2024-04-03] MEDS: INSULIN ASPART (NovoLOG) 100 UNIT/ML VIAL SQ SCH (13:29)
[2024-04-03 14:28] VITALS: BMI 25.4
--- NOTE | 2024-04-03 14:43 | P.PN ---
Subjective Progress Note Date: 04/03/24 History of present illness; Patient is a 78-year-old male with CAD with history of CABG, diabetes mellitus who presents for lower extremity wound. He states that this has been an ongoing problem for the last 6 to 7 weeks. Patient states he has been seen in [place] for 2 sessions of wound care for his ulcerating wounds of his left and right distal foot and toes. Patient states he had 2 sessions and had been on Bactrim for 10 days which had not improved his foot pain or ulcerations as much as expected. It seems that he is not taking regular medication for CAD other than daily aspirin. Also, patient did have some nausea vomiting with abdominal pain mostly in the right upper quadrant that has since resolved. Currently patient reports absence of fever, chills, chest pain, dyspnea, cough, nausea, vomiting, abdominal pain, dizziness, headache, and dysuria. Initial lab evaluation in ER significant for WBC 12.7, hemoglobin 11.5, sodium 140, bicarb 21, gap 8, BUN 39, creatinine 1.72, glucose 164, AST 80, ALT 288, ALP 320, CRP 22.4. CT angiogram of bilateral lower extremities significant for extensive atherosclerotic disease of lower extremity arterial vessels involving the anterior tibial, posterior tibial and peroneal arteries bilateral with multi focal severe stenosis. Also with gas seen in soft tissues along plantar surface of left foot, likely related to wound. Ultrasound abdominal right upper quadrant significant for hydropic gallbladder fully distended, echogenic sludge with pericholestatic edema 04/03/2024 Patient seen and examined at bedside, no acute events overnight. Denies pain this morning. He is seen by general surgery who plan on laparoscopic cholecystectomy tomorrow. He is also seen by vascular surgery, and ID is following him at this time. Today's labs WBC 11.3, hemoglobin 9.6, sodium 142, BUN 30, creatinine 1.57, glucose ranging 44-299. Lower extremity ultrasound findings of mild left peripheral vascular disease, normal right biapical brachial indices. REVIEW OF SYSTEMS: Pertinent positives and negatives noted in HPI. PHYSICAL EXAMINATION: Vitals reviewed GENERAL: No acute distress. Well developed, well nourished. HEENT: Pupils are round and equally reacting to light. EOMI. No scleral icterus. Normocephalic, atraumatic. CARDIOVASCULAR: S1 and S2 present. No murmurs, rubs, or gallops. PULMONARY: Chest is clear to auscultation, no wheezing, rhonchi, or crackles. ABDOMEN: Soft, nontender, nondistended, normoactive bowel sounds. No palpable organomegaly. MUSCULOSKELETAL: No apparent joint swelling and deformities. EXTREMITIES: Left foot with findings of distal ulceration and first and second toe, distal ulceration of right first toe. Nontender with some erythema. No apparent cyanosis, clubbing, or pedal edema. NEUROLOGICAL: The patient is alert and oriented x3, Gross neurological examination did not reveal any focal deficits. SKIN: No apparent rashes. Assessment and plan Patient is a 78-year-old male with CAD with history of CABG who presents for lower extremity wound. # Symptomatic peripheral artery disease of right lower extremity CT angio as above, significant atherosclerotic disease of lower extremities -Aspirin 81 p.o. daily Lipid panel pending, plan to begin Lipitor 80 p.o. mg daily Continue vancomycin, clindamycin, cefepime Lower extremity ultrasound findings of mild left peripheral vascular disease, normal right biapical brachial indices -No emergent surgical intervention at this time -Wound care, ID, and vascular surgery following #Hydropic gallbladder likely due to acute cholecystitis, choledocholithiasis #Nausea vomiting Ultrasound as above Initial ALP 320, AST 80, ALT 288 Continue Maalox, Tums, Pepcid for symptomatic treatment of nausea and vomiting Blood culture pending CTAP findings concerning for acute cholecystitis with surrounding inflammatory changes with gallstones, possible gallstone and cystic duct General Surgery following, plan for lap cholecystectomy tomorrow #NITIN, improving Initial BUN 39, creatinine 1.72 Continue to monitor #Diabetes mellitus, type 2 Begin Accu-Cheks and low-dose sliding scale, monitor for hypoglycemia Resume home long-acting insulin 22 units twice daily Chronic Medical Conditions # Essential hypertension - Resume home Lisinopril #Coronary artery disease Resume daily aspirin F: P.o. E: Replete as needed N: Heart healthy diet DVT ppx: Subq heparin 5000 units every 8 hours Code status: Full code Anticipated discharge place: Home Anticipated discharge time: 2 to 3 days Dictation was produced using [employer] dictation software. Please excuse any grammatical, word or spelling errors. Attestation I have seen and examined this patient with my resident , discussed the same with the resident/JOHNSON, and agree with the dictator's assessment and plan as written Dr. Carlos frankel Objective - Vital Signs Vital signs: Vital Signs Temp 98.6 F 04/03/24 13:19 Pulse 77 04/03/24 13:19 Resp 14 04/03/24 13:19 BP 150/81 04/03/24 13:19 Pulse Ox 98 04/03/24 13:19 FiO2 Intake & Output 04/02/24 04/03/24 04/03/24 18:59 06:59 18:59 Intake Total 598 Balance 598 Weight 83.915 kg 80.4 kg Intake: Oral 598 Other: # Voids 3 - Labs CBC & Chem 7: 04/03/24 06:15 04/04/24 05:07 Labs: Abnormal Lab Results - Last 24 Hours (Table) 04/02/24 04/02/24 04/03/24 Range/Units 08:55 20:46 06:15 WBC (4.50-10.00) X 10*3/uL RBC (4.40-5.60) X 10*6/uL Hgb (13.0-17.0) g/dL Hct (39.6-50.0) % MCHC (32.0-37.0) g/dL Immature Gran # (0.00-0.04) X 10*3/uL Neutrophils # (1.80-7.70) X 10*3/uL Chloride 111 H (98-107) mmol/L BUN 30 H (9-20) mg/dL Creatinine 1.57 H (0.66-1.25) mg/dL Glucose 44 L* (74-99) mg/dL POC Glucose (mg/dL) 158 H (70-110) mg/dL Calcium 8.2 L (8.4-10.2) mg/dL ALT 182 H (4-49) U/L Alkaline Phosphatase 232 H (38-126) U/L Total Protein 5.9 L (6.3-8.2) g/dL Albumin 2.7 L (3.5-5.0) g/dL HDL Cholesterol 37.60 L (40.00-60.00) mg/dL 04/03/24 04/03/24 04/03/24 Range/Units 06:15 07:24 07:26 WBC 11.38 H (4.50-10.00) X 10*3/uL RBC 3.54 L (4.40-5.60) X 10*6/uL Hgb 9.6 L (13.0-17.0) g/dL Hct 31.0 L (39.6-50.0) % MCHC 31.0 L (32.0-37.0) g/dL Immature Gran # 0.07 H (0.00-0.04) X 10*3/uL Neutrophils # 9.26 H (1.80-7.70) X 10*3/uL Chloride (98-107) mmol/L BUN (9-20) mg/dL Creatinine (0.66-1.25) mg/dL Glucose (74-99) mg/dL POC Glucose (mg/dL) 38 L* 46 L* (70-110) mg/dL Calcium (8.4-10.2) mg/dL ALT (4-49) U/L Alkaline Phosphatase (38-126) U/L Total Protein (6.3-8.2) g/dL Albumin (3.5-5.0) g/dL HDL Cholesterol (40.00-60.00) mg/dL 04/03/24 Range/Units 12:09 WBC (4.50-10.00) X 10*3/uL RBC (4.40-5.60) X 10*6/uL Hgb (13.0-17.0) g/dL Hct (39.6-50.0) % MCHC (32.0-37.0) g/dL Immature Gran # (0.00-0.04) X 10*3/uL Neutrophils # (1.80-7.70) X 10*3/uL Chloride (98-107) mmol/L BUN (9-20) mg/dL Creatinine (0.66-1.25) mg/dL Glucose (74-99) mg/dL POC Glucose (mg/dL) 299 H (70-110) mg/dL Calcium (8.4-10.2) mg/dL ALT (4-49) U/L Alkaline Phosphatase (38-126) U/L Total Protein (6.3-8.2) g/dL Albumin (3.5-5.0) g/dL HDL Cholesterol (40.00-60.00) mg/dL Microbiology - Last 24 Hours (Table) 04/01/24 17:24 Blood Culture - Preliminary Blood
--- NOTE | 2024-04-03 15:55 | P.PN ---
Subjective Progress Note Date: 04/03/24 Principal diagnosis: Reason for follow-up is left foot wound cellulitis and cholecystitis Patient is a 78-year-old male with a past medical history significant for diabetes mellitus hypertension presenting to the hospital for evaluation for evaluation of bilateral big toe wounds cellulitis with evidence of PAD on initial testing. On today's evaluation that is 04/03/2024, patient did not have any fever and denies any chills, patient is breathing comfortably on room air, and does not seem in any distress he is currently sleeping comfortably no vomiting or diarrhea reported by the nursing staff. Patient white count is 11.38, creatinine is 1.57 liver enzymes mildly elevated abdominal pelvis CT concerning for acute cholecystitis with hydropic gallbladder miting or any loose stools Objective - Vital Signs Vital signs: Vital Signs Temp 98.6 F 04/03/24 13:19 Pulse 77 04/03/24 13:19 Resp 14 04/03/24 13:19 BP 150/81 04/03/24 13:19 Pulse Ox 98 04/03/24 13:19 FiO2 Intake & Output 04/02/24 04/03/24 04/03/24 18:59 06:59 18:59 Intake Total 598 Balance 598 Weight 83.915 kg 80.4 kg Intake: Oral 598 Other: # Voids 3 2 # Bowel Movements 1 - Exam Elderly male up in the bed in no distress No tachypnea or accessory muscle respiration use Unlabored breathing Patient left foot big toe with a dried up scab and some swelling redness no drainage - Labs CBC & Chem 7: 04/03/24 06:15 04/03/24 06:15 Labs: Abnormal Lab Results - Last 24 Hours (Table) 04/02/24 04/02/24 04/03/24 Range/Units 08:55 20:46 06:15 WBC (4.50-10.00) X 10*3/uL RBC (4.40-5.60) X 10*6/uL Hgb (13.0-17.0) g/dL Hct (39.6-50.0) % MCHC (32.0-37.0) g/dL Immature Gran # (0.00-0.04) X 10*3/uL Neutrophils # (1.80-7.70) X 10*3/uL Chloride 111 H (98-107) mmol/L BUN 30 H (9-20) mg/dL Creatinine 1.57 H (0.66-1.25) mg/dL Glucose 44 L* (74-99) mg/dL POC Glucose (mg/dL) 158 H (70-110) mg/dL Calcium 8.2 L (8.4-10.2) mg/dL ALT 182 H (4-49) U/L Alkaline Phosphatase 232 H (38-126) U/L Total Protein 5.9 L (6.3-8.2) g/dL Albumin 2.7 L (3.5-5.0) g/dL HDL Cholesterol 37.60 L (40.00-60.00) mg/dL 04/03/24 04/03/24 04/03/24 Range/Units 06:15 07:24 07:26 WBC 11.38 H (4.50-10.00) X 10*3/uL RBC 3.54 L (4.40-5.60) X 10*6/uL Hgb 9.6 L (13.0-17.0) g/dL Hct 31.0 L (39.6-50.0) % MCHC 31.0 L (32.0-37.0) g/dL Immature Gran # 0.07 H (0.00-0.04) X 10*3/uL Neutrophils # 9.26 H (1.80-7.70) X 10*3/uL Chloride (98-107) mmol/L BUN (9-20) mg/dL Creatinine (0.66-1.25) mg/dL Glucose (74-99) mg/dL POC Glucose (mg/dL) 38 L* 46 L* (70-110) mg/dL Calcium (8.4-10.2) mg/dL ALT (4-49) U/L Alkaline Phosphatase (38-126) U/L Total Protein (6.3-8.2) g/dL Albumin (3.5-5.0) g/dL HDL Cholesterol (40.00-60.00) mg/dL 04/03/24 Range/Units 12:09 WBC (4.50-10.00) X 10*3/uL RBC (4.40-5.60) X 10*6/uL Hgb (13.0-17.0) g/dL Hct (39.6-50.0) % MCHC (32.0-37.0) g/dL Immature Gran # (0.00-0.04) X 10*3/uL Neutrophils # (1.80-7.70) X 10*3/uL Chloride (98-107) mmol/L BUN (9-20) mg/dL Creatinine (0.66-1.25) mg/dL Glucose (74-99) mg/dL POC Glucose (mg/dL) 299 H (70-110) mg/dL Calcium (8.4-10.2) mg/dL ALT (4-49) U/L Alkaline Phosphatase (38-126) U/L Total Protein (6.3-8.2) g/dL Albumin (3.5-5.0) g/dL HDL Cholesterol (40.00-60.00) mg/dL Microbiology - Last 24 Hours (Table) 04/01/24 17:24 Blood Culture - Preliminary Blood Assessment and Plan (1) Cellulitis Current Visit: Yes Status: Acute Code(s): L03.90 - CELLULITIS, UNSPECIFIED SNOMED Code(s): 528988219 (2) Diabetic foot ulcer Current Visit: Yes Status: Acute Code(s): E11.621 - TYPE 2 DIABETES MELLITUS WITH FOOT ULCER; L97.509 - NON-PRESSURE CHRONIC ULCER OTH PRT UNSP FOOT W UNSP SEVERITY SNOMED Code(s): 423992749 Plan: 1patient with a nonhealing wound to bilateral feet area more marked on the left foot right side in this patient who did have a significant PAD concerning for nonhealing of his wound and failure" patient oral antibiotic therapy 2-patient did have a CT abdominal pelvis concerning for cholecystitis and is scheduled for cholecystectomy tomorrow 3-patient be continued with the cefepime switch clindamycin to Flagyl and monitor clinical course closely Dictation was produced using [employer] dictation software. please excuse any gr ammatical, word or spelling errors. Time with Patient: Less than 30
[2024-04-03] MEDS: metroNIDAZOLE 500 MG TAB PO SCH (16:36)
[2024-04-03 17:13] LABS: Glucose,Whole Blood 206 mg/dL (70-110)
[2024-04-03 20:35] LABS: Glucose,Whole Blood 250 mg/dL (70-110)
[2024-04-04] MEDS: MORPHINE SULFATE 4 MG/ML SYRINGE IV PRN (03:23)
[2024-04-04 05:39] LABS: ALT 138 U/L (4-49); AST 47 U/L (17-59); African American GFR (CKD) 53 (>60 ml/min/1.73 sqM); Albumin 2.5 g/dL (3.5-5.0); Albumin/Globulin Ratio 0.8; Alkaline Phosphatase 195 U/L (38-126); Anion Gap 10 mmol/L; Blood Urea Nitrogen 32 mg/dL (9-20); Calcium 8.2 mg/dL (8.4-10.2); Carbon Dioxide 20 mmol/L (22-30); Chloride 110 mmol/L (98-107); Globulin 3.1 g/dL; Glucose 63 mg/dL (74-99); Non-African American GFR(CKD) 45 (>60 ml/min/1.73 sqM); Potassium 3.9 mmol/L (3.5-5.1); Sodium 140 mmol/L (137-145); Total Bilirubin 0.5 mg/dL (0.2-1.3); Total Protein 5.6 g/dL (6.3-8.2)
[2024-04-04 07:14] LABS: Glucose,Whole Blood 69 mg/dL (70-110)
[2024-04-04] MEDS: DEXTROSE 50% SYRINGE 50 ML IVP PRN (07:26)
[2024-04-04 07:54] LABS: Glucose,Whole Blood 123 mg/dL (70-110)
[2024-04-04] MEDS: IV FLUID CONTINUATION 1,000 ML IV ONE (09:02)
[2024-04-04] MEDS: DEXAMETHASONE SOD PHOSPHATE 4 MG/ML 1 ML VIAL IVP STA (09:26)
[2024-04-04] MEDS: ONDANSETRON 4 MG/2 ML VIAL IVP PRN (09:27)
[2024-04-04 09:51] LABS: Basophils # (A) 0.01 X 10*3/uL (0.00-0.10); Basophils % (A) 0.1 %; Eosinophils # (A) 0.16 X 10*3/uL (0.04-0.35); Eosinophils % (A) 1.6 %; HCT 29.8 % (39.6-50.0); Lymphocytes # (A) 1.11 X 10*3/uL (0.90-5.00); Lymphocytes % (A) 11.3 %; MCHC 30.2 g/dL (32.0-37.0); MCV 89.5 FL (80.0-97.0); Mean Platelet Volume 11.3 FL (9.5-12.2); Monocytes # (A) 0.74 X 10*3/uL (0.20-1.00); Monocytes % (A) 7.6 %; NRBC Per 100 WBC 0 X 10*3/uL (0.00-0.01); Neutrophils # (A) 7.72 X 10*3/uL (1.80-7.70); Platelet Count 249 X 10*3/uL (140-440); RBC 3.33 X 10*6/uL (4.40-5.60); RDW 13.4 % (11.5-14.5); WBC 9.78 X 10*3/uL (4.50-10.00)
[2024-04-04] MEDS ORDERED: PHENYLEPHRINE 10 MG/ML VIAL ONE (10:00)
[2024-04-04] MEDS ORDERED: fentaNYL (PF) 50 MCG/ML 2 ML AMP ONE (10:00)
[2024-04-04] MEDS ORDERED: SUCCINYLCHOLINE CHLORIDE 200 MG/10 ML VIAL IV ONE (10:00)
[2024-04-04] MEDS ORDERED: ROCURONIUM 10 MG/ML (5 ML VIAL) IV ONE (10:00)
[2024-04-04] MEDS ORDERED: LIDOCAINE 4% LTA KIT (4 ML) TOPICAL ONE (10:00)
[2024-04-04] MEDS ORDERED: LIDOCAINE 1% INJ 10MG/ML (20 ML MDV) ONE (10:00)
[2024-04-04] MEDS ORDERED: NEOSTIGMINE 1 MG/ML 10 ML VIAL ONE (10:00)
[2024-04-04] MEDS ORDERED: GLYCOPYRROLATE 0.2 MG/ML 2 ML VIAL ONE (10:00)
[2024-04-04] MEDS ORDERED: PROPOFOL 10 MG/ML 20 ML VIAL IV ONE (10:00)
[2024-04-04] MEDS: LACTATED RINGERS 1,000 ML IV ONE ×2 (10:02→11:11)
[2024-04-04] MEDS: LIDOCAINE 2%-EPI 1:100,000 20 ML VIAL SQ ONE (10:23)
[2024-04-04] MEDS ORDERED: HYDROmorphone 1 MG/ML 1 ML SYRINGE IVP PRN (11:15)
--- NOTE | 2024-04-04 11:19 | P.OP ---
Date of Procedure: 04/04/24 Procedure(s) Performed: PREOPERATIVE DIAGNOSIS: Acute cholecystitis POSTOPERATIVE DIAGNOSIS: Acute gangrenous cholecystitis PROCEDURE: Laparoscopic cholecystectomy SURGEON: Annalee EBL: 25 cc ANESTHESIA: Gen. COMPLICATIONS: None OPERATIVE PROCEDURE: The patient was brought and placed on the operating room table in the supine position. The patient was placed under general anesthesia at that time. The abdomen was prepped and draped in the usual sterile fashion. A small vertical infraumbilical incision was made. The fascia was grasped with the Keanu forceps. The fascia was retracted anteriorly. The Veress needle was advanced into the peritoneal cavity. The saline drop test was normal. Insufflation took place up to 15 mmHg. A 5 mm optical trocar was advanced and the peritoneal cavity. 2 additional 5 mm trochars were placed in the right upper quadrant under direct visualization. A 12 mm trocar was advanced into the epigastric incision site. The omentum was adherent to the gallbladder. Using blunt dissection we were able to visualize the gallbladder. Surprisingly I would estimate 80% of the gallbladder surface was full-thickness gangrenous changes. This was despite the patient not having significant abdominal pain. The gallbladder was retracted superiorly and laterally. Blunt dissection ensued along the gangrenous wall of the gallbladder until the infundibulum was visualized. The cystic artery was visualized as there appeared to be some viability to the area of the infundibulum adjacent to the cystic artery. The cystic artery was clipped. Blunt dissection then continued until I could visualize the gangrenous changes of the infundibulum narrowing down into the region of the proximal cystic duct. There was still significant inflammatory changes here. I decided to ligate the gallbladder at the junction with the proximal cystic duct. The cystic duct was divided using a 2-0 Ethibond stitch tied down using a tie knot device. 2 additional 12 mm clips were placed on the cystic duct as well. The gallbladder was divided on the specimen side of the clip placement. A few small superficial vessels were seen entering the posterior wall of the gallbladder that were clipped. The majority the gallbladder was able to be removed from the liver bed using blunt dissection and cautery. LigaSure was also utilized for a portion of the gallbladder dissection. The gallbladder was then removed from the epigastric trocar site with an Endo Catch bag. The gallbladder fossa was irrigated with saline. There was no evidence of any bleeding or biliary drainage seen. A drain was placed through the most lateral 5 mm trocar site into the gallbladder fossa. It was sutured in place using a 3-0 silk stitch. The fascia at the 12 millimeter site was closed using a [id number] 0 Vicryl stitch. The trochars were then removed. The skin at all 3 sites was closed using a 4-0 Monocryl stitch. Skin glue was utilized on the incision sites. At the end of this procedure the sponge and needle counts were correct. DISPOSITION: Stable to the recovery room
[2024-04-04 12:35] LABS: Glucose,Whole Blood 157 mg/dL (70-110)
--- NOTE | 2024-04-04 15:11 | P.PN ---
Subjective Progress Note Date: 04/04/24 History of present illness; Patient is a 78-year-old male with CAD with history of CABG, diabetes mellitus who presents for lower extremity wound. He states that this has been an ongoing problem for the last 6 to 7 weeks. Patient states he has been seen in [place] for 2 sessions of wound care for his ulcerating wounds of his left and right distal foot and toes. Patient states he had 2 sessions and had been on Bactrim for 10 days which had not improved his foot pain or ulcerations as much as expected. It seems that he is not taking regular medication for CAD other than daily aspirin. Also, patient did have some nausea vomiting with abdominal pain mostly in the right upper quadrant that has since resolved. Currently patient reports absence of fever, chills, chest pain, dyspnea, cough, nausea, vomiting, abdominal pain, dizziness, headache, and dysuria. Initial lab evaluation in ER significant for WBC 12.7, hemoglobin 11.5, sodium 140, bicarb 21, gap 8, BUN 39, creatinine 1.72, glucose 164, AST 80, ALT 288, ALP 320, CRP 22.4. CT angiogram of bilateral lower extremities significant for extensive atherosclerotic disease of lower extremity arterial vessels involving the anterior tibial, posterior tibial and peroneal arteries bilateral with multi focal severe stenosis. Also with gas seen in soft tissues along plantar surface of left foot, likely related to wound. Ultrasound abdominal right upper quadrant significant for hydropic gallbladder fully distended, echogenic sludge with pericholestatic edema 04/03/2024 Patient seen and examined at bedside, no acute events overnight. Denies pain this morning. He is seen by general surgery who plan on laparoscopic cholecystectomy tomorrow. He is also seen by vascular surgery, and ID is following him at this time. Today's labs WBC 11.3, hemoglobin 9.6, sodium 142, BUN 30, creatinine 1.57, glucose ranging 44-299. Lower extremity ultrasound findings of mild left peripheral vascular disease, normal right biapical brachial indices. 04/04. Patient seen and examined. Underwent laparoscopic cholecystectomy this morning. States he is feeling better. REVIEW OF SYSTEMS: Pertinent positives and negatives noted in HPI. PHYSICAL EXAMINATION: Vitals reviewed GENERAL: No acute distress. Well developed, well nourished. HEENT: Pupils are round and equally reacting to light. EOMI. No scleral icterus. Normocephalic, atraumatic. CARDIOVASCULAR: S1 and S2 present. No murmurs, rubs, or gallops. PULMONARY: Chest is clear to auscultation, no wheezing, rhonchi, or crackles. ABDOMEN: Soft, laparoscopic surgical incisions seen MUSCULOSKELETAL: No apparent joint swelling and deformities. EXTREMITIES: Left foot with findings of distal ulceration and first and second toe, distal ulceration of right first toe. Nontender with some erythema. No apparent cyanosis, clubbing, or pedal edema. NEUROLOGICAL: The patient is alert and oriented x3, Gross neurological examination did not reveal any focal deficits. SKIN: No apparent rashes. Assessment and plan Patient is a 78-year-old male with CAD with history of CABG who presents for lower extremity wound. # Symptomatic peripheral artery disease of right lower extremity Monitor vital signs monitor CBC Continue cefepime, Flagyl Lower extremity ultrasound findings of mild left peripheral vascular disease, normal right biapical brachial indices -No emergent surgical intervention at this time -Wound care, ID, and vascular surgery following #Hydropic gallbladder likely due to acute cholecystitis, choledocholithiasis #Nausea vomiting Status post laparoscopic cholecystectomy Continue clear liquid diet, advance per surgery #NITIN, improving Monitor BMP #Diabetes mellitus, type 2 Monitor blood sugar levels, continue current insulin regimen Chronic Medical Conditions # Essential hypertension Continue lisinopril #Coronary artery disease Continue aspirin Objective - Vital Signs Vital signs: Vital Signs Temp 98.1 F 04/04/24 12:27 Pulse 82 04/04/24 13:27 Resp 16 04/04/24 12:27 BP 145/74 04/04/24 13:27 Pulse Ox 96 04/04/24 13:27 FiO2 Intake & Output 04/03/24 04/04/24 04/04/24 18:59 06:59 18:59 Intake Total 340 700 Output Total 25 Balance 340 675 Weight 80.4 kg Intake: IV 700 Oral 340 Output: Estimated Blood Loss 25 Other: # Voids 4 2 # Bowel Movements 1 - Labs CBC & Chem 7: 04/04/24 05:07 04/04/24 05:07 Labs: Abnormal Lab Results - Last 24 Hours (Table) 04/03/24 04/03/24 04/04/24 Range/Units 17:11 20:34 05:07 RBC (4.40-5.60) X 10*6/uL Hgb (13.0-17.0) g/dL Hct (39.6-50.0) % MCHC (32.0-37.0) g/dL Neutrophils # (1.80-7.70) X 10*3/uL Chloride (98-107) mmol/L Carbon Dioxide (22-30) mmol/L BUN (9-20) mg/dL Creatinine (0.66-1.25) mg/dL Glucose (74-99) mg/dL POC Glucose (mg/dL) 206 H 250 H (70-110) mg/dL Hemoglobin A1c 8.9 H (<=6.0) % Calcium (8.4-10.2) mg/dL ALT (4-49) U/L Alkaline Phosphatase (38-126) U/L Total Protein (6.3-8.2) g/dL Albumin (3.5-5.0) g/dL 04/04/24 04/04/24 04/04/24 Range/Units 05:07 05:07 07:10 RBC 3.33 L (4.40-5.60) X 10*6/uL Hgb 9.0 L (13.0-17.0) g/dL Hct 29.8 L (39.6-50.0) % MCHC 30.2 L (32.0-37.0) g/dL Neutrophils # 7.72 H (1.80-7.70) X 10*3/uL Chloride 110 H (98-107) mmol/L Carbon Dioxide 20 L (22-30) mmol/L BUN 32 H (9-20) mg/dL Creatinine 1.48 H (0.66-1.25) mg/dL Glucose 63 L (74-99) mg/dL POC Glucose (mg/dL) 69 L (70-110) mg/dL Hemoglobin A1c (<=6.0) % Calcium 8.2 L (8.4-10.2) mg/dL ALT 138 H (4-49) U/L Alkaline Phosphatase 195 H (38-126) U/L Total Protein 5.6 L (6.3-8.2) g/dL Albumin 2.5 L (3.5-5.0) g/dL 04/04/24 04/04/24 Range/Units 07:52 12:31 RBC (4.40-5.60) X 10*6/uL Hgb (13.0-17.0) g/dL Hct (39.6-50.0) % MCHC (32.0-37.0) g/dL Neutrophils # (1.80-7.70) X 10*3/uL Chloride (98-107) mmol/L Carbon Dioxide (22-30) mmol/L BUN (9-20) mg/dL Creatinine (0.66-1.25) mg/dL Glucose (74-99) mg/dL POC Glucose (mg/dL) 123 H 157 H (70-110) mg/dL Hemoglobin A1c (<=6.0) % Calcium (8.4-10.2) mg/dL ALT (4-49) U/L Alkaline Phosphatase (38-126) U/L Total Protein (6.3-8.2) g/dL Albumin (3.5-5.0) g/dL Microbiology - Last 24 Hours (Table) 04/01/24 17:24 Blood Culture - Preliminary Blood
--- NOTE | 2024-04-04 16:01 | P.PN ---
Subjective Progress Note Date: 04/04/24 Principal diagnosis: Reason for follow-up is left foot wound cellulitis and cholecystitis Patient is a 78-year-old male with a past medical history significant for diabetes mellitus hypertension presenting to the hospital for evaluation for evaluation of bilateral big toe wounds cellulitis with evidence of PAD on initial testing. Patient is status post laparoscopic cholecystectomy with concern for acute gangrenous cholecystitis completed on 04/04/2024. On today's evaluation that is 04/04/2024, Patient is afebrile patient is currently on room air and denies having any shortness of breath, the patient denies any chest pain or cough, the patient denies any nausea vomiting abdominal pain is currently controlled still complaining of pain to the left foot area and denies having any diarrhea. Patient white count 9.78, creatinine is 1.48 blood cultures are pending Objective - Vital Signs Vital signs: Vital Signs Temp 98.1 F 04/04/24 12:27 Pulse 82 04/04/24 13:27 Resp 16 04/04/24 12:27 BP 145/74 04/04/24 13:27 Pulse Ox 96 04/04/24 13:27 FiO2 Intake & Output 04/03/24 04/04/24 04/04/24 18:59 06:59 18:59 Intake Total 340 700 Output Total 25 Balance 340 675 Weight 80.4 kg Intake: IV 700 Oral 340 Output: Estimated Blood Loss 25 Other: # Voids 4 2 # Bowel Movements 1 - Exam GENERAL DESCRIPTION: An elderly male lying in bed in no distress RESPIRATORY SYSTEM: Unlabored breathing , decreased breath sounds at bases HEART: S1 S2 regular rate and rhythm , ABDOMEN: Soft , mild tenderness EXTREMITIES: Foot wounds are currently dressed - Labs CBC & Chem 7: 04/04/24 05:07 04/04/24 05:07 Labs: Abnormal Lab Results - Last 24 Hours (Table) 04/03/24 04/03/24 04/04/24 Range/Units 17:11 20:34 05:07 RBC (4.40-5.60) X 10*6/uL Hgb (13.0-17.0) g/dL Hct (39.6-50.0) % MCHC (32.0-37.0) g/dL Neutrophils # (1.80-7.70) X 10*3/uL Chloride (98-107) mmol/L Carbon Dioxide (22-30) mmol/L BUN (9-20) mg/dL Creatinine (0.66-1.25) mg/dL Glucose (74-99) mg/dL POC Glucose (mg/dL) 206 H 250 H (70-110) mg/dL Hemoglobin A1c 8.9 H (<=6.0) % Calcium (8.4-10.2) mg/dL ALT (4-49) U/L Alkaline Phosphatase (38-126) U/L Total Protein (6.3-8.2) g/dL Albumin (3.5-5.0) g/dL 04/04/24 04/04/24 04/04/24 Range/Units 05:07 05:07 07:10 RBC 3.33 L (4.40-5.60) X 10*6/uL Hgb 9.0 L (13.0-17.0) g/dL Hct 29.8 L (39.6-50.0) % MCHC 30.2 L (32.0-37.0) g/dL Neutrophils # 7.72 H (1.80-7.70) X 10*3/uL Chloride 110 H (98-107) mmol/L Carbon Dioxide 20 L (22-30) mmol/L BUN 32 H (9-20) mg/dL Creatinine 1.48 H (0.66-1.25) mg/dL Glucose 63 L (74-99) mg/dL POC Glucose (mg/dL) 69 L (70-110) mg/dL Hemoglobin A1c (<=6.0) % Calcium 8.2 L (8.4-10.2) mg/dL ALT 138 H (4-49) U/L Alkaline Phosphatase 195 H (38-126) U/L Total Protein 5.6 L (6.3-8.2) g/dL Albumin 2.5 L (3.5-5.0) g/dL 04/04/24 04/04/24 Range/Units 07:52 12:31 RBC (4.40-5.60) X 10*6/uL Hgb (13.0-17.0) g/dL Hct (39.6-50.0) % MCHC (32.0-37.0) g/dL Neutrophils # (1.80-7.70) X 10*3/uL Chloride (98-107) mmol/L Carbon Dioxide (22-30) mmol/L BUN (9-20) mg/dL Creatinine (0.66-1.25) mg/dL Glucose (74-99) mg/dL POC Glucose (mg/dL) 123 H 157 H (70-110) mg/dL Hemoglobin A1c (<=6.0) % Calcium (8.4-10.2) mg/dL ALT (4-49) U/L Alkaline Phosphatase (38-126) U/L Total Protein (6.3-8.2) g/dL Albumin (3.5-5.0) g/dL Microbiology - Last 24 Hours (Table) 04/01/24 17:24 Blood Culture - Preliminary Blood Assessment and Plan (1) Cellulitis Current Visit: Yes Status: Acute Code(s): L03.90 - CELLULITIS, UNSPECIFIED SNOMED Code(s): 086030585 (2) Diabetic foot ulcer Current Visit: Yes Status: Acute Code(s): E11.621 - TYPE 2 DIABETES MELLITUS WITH FOOT ULCER; L97.509 - NON-PRESSURE CHRONIC ULCER OTH PRT UNSP FOOT W UNSP SEVERITY SNOMED Code(s): 873717362 (3) Acute cholecystitis Current Visit: Yes Status: Acute Code(s): K81.0 - ACUTE CHOLECYSTITIS SNOMED Code(s): 30803007 Plan: 1patient with a nonhealing wound to bilateral feet area more marked on the left foot right side in this patient who did have a significant PAD concerning for nonhealing of his wound and failure" patient oral antibiotic therapy 2-patient did have a CT abdominal pelvis concerning for cholecystitis and is status post cholecystectomy for acute given his cholecystitis 3-patient currently being treated cefepime and Flagyl and monitor clinical course closely Dictation was produced using [employer] dictation software. please excuse any grammatical, word or spelling errors. Time with Patient: Less than 30
[2024-04-04 17:29] LABS: Glucose,Whole Blood 279 mg/dL (70-110)
[2024-04-04 20:20] LABS: Glucose,Whole Blood 371 mg/dL (70-110)
[2024-04-05 06:05] LABS: ALT 108 U/L (4-49); AST 50 U/L (17-59); African American GFR (CKD) 53 (>60 ml/min/1.73 sqM); Albumin 2.2 g/dL (3.5-5.0); Albumin/Globulin Ratio 0.7; Alkaline Phosphatase 175 U/L (38-126); Anion Gap 8 mmol/L; Blood Urea Nitrogen 27 mg/dL (9-20); Calcium 8.2 mg/dL (8.4-10.2); Carbon Dioxide 19 mmol/L (22-30); Chloride 109 mmol/L (98-107); Globulin 3.1 g/dL; Glucose 233 mg/dL (74-99); Non-African American GFR(CKD) 45 (>60 ml/min/1.73 sqM); Potassium 4.2 mmol/L (3.5-5.1); Sodium 136 mmol/L (137-145); Total Bilirubin 0.4 mg/dL (0.2-1.3); Total Protein 5.3 g/dL (6.3-8.2)
[2024-04-05 07:35] LABS: Glucose,Whole Blood 175 mg/dL (70-110)
[2024-04-05 09:22] LABS: Basophils # (A) 0.02 X 10*3/uL (0.00-0.10); Basophils % (A) 0.2 %; Eosinophils # (A) 0.02 X 10*3/uL (0.04-0.35); Eosinophils % (A) 0.2 %; HCT 29.2 % (39.6-50.0); HGB 9.3 g/dL (13.0-17.0); Lymphocytes # (A) 0.78 X 10*3/uL (0.90-5.00); Lymphocytes % (A) 6.6 %; MCH 27.3 pg (27.0-32.0); MCHC 31.8 g/dL (32.0-37.0); MCV 85.6 FL (80.0-97.0); Mean Platelet Volume 10.8 FL (9.5-12.2); Monocytes # (A) 0.68 X 10*3/uL (0.20-1.00); Monocytes % (A) 5.7 %; NRBC Per 100 WBC 0 X 10*3/uL (0.00-0.01); Neutrophils # (A) 10.31 X 10*3/uL (1.80-7.70); Neutrophils % (A) 86.5 %; Platelet Count 251 X 10*3/uL (140-440); RBC 3.41 X 10*6/uL (4.40-5.60); RDW 13.6 % (11.5-14.5)
--- NOTE | 2024-04-05 11:44 | P.PN ---
Subjective Progress Note Date: 04/05/24 Principal diagnosis: Cholecystitis Patient having mild soreness. Has more foot pain however then abdominal discomforts. Tolerating diet. No nausea or vomiting. Repeat labs reviewed. Objective - Vital Signs Vital signs: Vital Signs Temp 98.1 F 04/05/24 07:52 Pulse 70 04/05/24 07:52 Resp 16 04/05/24 07:52 BP 114/73 04/05/24 07:52 Pulse Ox 94 L 04/05/24 07:52 FiO2 Intake & Output 04/04/24 04/05/24 04/05/24 18:59 06:59 18:59 Intake Total 1240 540 Output Total 55 70 Balance 1185 470 Intake: IV 700 Oral 540 540 Output: Drainage 30 70 Right Abdomen 30 70 Estimated Blood Loss 25 Other: # Voids 1 - Exam Abdomen: Soft, nondistended, incisions clean and dry, mild incisional tenderness - Labs CBC & Chem 7: 04/05/24 04:51 04/05/24 04:51 Labs: Abnormal Lab Results - Last 24 Hours (Table) 04/04/24 04/04/24 04/04/24 Range/Units 12:31 17:15 20:18 WBC (4.50-10.00) X 10*3/uL RBC (4.40-5.60) X 10*6/uL Hgb (13.0-17.0) g/dL Hct (39.6-50.0) % MCHC (32.0-37.0) g/dL Immature Gran # (0.00-0.04) X 10*3/uL Neutrophils # (1.80-7.70) X 10*3/uL Lymphocytes # (0.90-5.00) X 10*3/uL Eosinophils # (0.04-0.35) X 10*3/uL Sodium (137-145) mmol/L Chloride (98-107) mmol/L Carbon Dioxide (22-30) mmol/L BUN (9-20) mg/dL Creatinine (0.66-1.25) mg/dL Glucose (74-99) mg/dL POC Glucose (mg/dL) 157 H 279 H 371 H (70-110) mg/dL Calcium (8.4-10.2) mg/dL ALT (4-49) U/L Alkaline Phosphatase (38-126) U/L Total Protein (6.3-8.2) g/dL Albumin (3.5-5.0) g/dL 04/05/24 04/05/24 04/05/24 Range/Units 04:51 04:51 07:20 WBC 11.90 H (4.50-10.00) X 10*3/uL RBC 3.41 L (4.40-5.60) X 10*6/uL Hgb 9.3 L (13.0-17.0) g/dL Hct 29.2 L (39.6-50.0) % MCHC 31.8 L (32.0-37.0) g/dL Immature Gran # 0.09 H (0.00-0.04) X 10*3/uL Neutrophils # 10.31 H (1.80-7.70) X 10*3/uL Lymphocytes # 0.78 L (0.90-5.00) X 10*3/uL Eosinophils # 0.02 L (0.04-0.35) X 10*3/uL Sodium 136 L (137-145) mmol/L Chloride 109 H (98-107) mmol/L Carbon Dioxide 19 L (22-30) mmol/L BUN 27 H (9-20) mg/dL Creatinine 1.48 H (0.66-1.25) mg/dL Glucose 233 H (74-99) mg/dL POC Glucose (mg/dL) 175 H (70-110) mg/dL Calcium 8.2 L (8.4-10.2) mg/dL ALT 108 H (4-49) U/L Alkaline Phosphatase 175 H (38-126) U/L Total Protein 5.3 L (6.3-8.2) g/dL Albumin 2.2 L (3.5-5.0) g/dL Microbiology - Last 24 Hours (Table) 04/01/24 17:24 Blood Culture - Preliminary Blood Assessment and Plan (1) Acute cholecystitis Narrative/Plan: Patient doing surprisingly well after laparoscopic cholecystectomy for gangrenous cholecystitis. Continue antibiotics. Keep drain in place. Anticipate discharge tomorrow with drain in place from our point of view. Follow-up 1 week. Current Visit: Yes Status: Acute Code(s): K81.0 - ACUTE CHOLECYSTITIS SNOMED Code(s): 56881221
[2024-04-05 12:27] LABS: Glucose,Whole Blood 210 mg/dL (70-110)
--- NOTE | 2024-04-05 14:59 | P.PN ---
Subjective Progress Note Date: 04/05/24 Principal diagnosis: Hospital course: Patient is a 78-year-old male with CAD with history of CABG, diabetes mellitus who presents for lower extremity wound. He states that this has been an ongoing problem for the last 6 to 7 weeks. Patient states he has been seen in [address] for 2 sessions of wound care for his ulcerating wounds of his left and right distal foot and toes. Patient states he had 2 sessions and had been on Bactrim for 10 days which had not improved his foot pain or ulcerations as much as expected. It seems that he is not taking regular medication for CAD other than daily aspirin. Also, patient did have some nausea vomiting with abdominal pain mostly in the right upper quadrant that has since resolved. Currently patient reports absence of fever, chills, chest pain, dyspnea, cough, nausea, vomiting, abdominal pain, dizziness, headache, and dysuria. Initial lab evaluation in ER significant for WBC 12.7, hemoglobin 11.5, sodium 140, bicarb 21, gap 8, BUN 39, creatinine 1.72, glucose 164, AST 80, ALT 288, ALP 320, CRP 22.4. CT angiogram of bilateral lower extremities significant for extensive atherosclerotic disease of lower extremity arterial vessels involving the anterior tibial, posterior tibial and peroneal arteries bilateral with multi foc al severe stenosis. Also with gas seen in soft tissues along plantar surface of left foot, likely related to wound. Ultrasound abdominal right upper quadrant significant for hydropic gallbladder fully distended, echogenic sludge with pericholestatic edema 04/03/2024 Patient seen and examined at bedside, no acute events overnight. Denies pain this morning. He is seen by general surgery who plan on laparoscopic cholecystectomy tomorrow. He is also seen by vascular surgery, and ID is foll owing him at this time. Today's labs WBC 11.3, hemoglobin 9.6, sodium 142, BUN 30, creatinine 1.57, glucose ranging 44-299. Lower extremity ultrasound findings of mild left peripheral vascular disease, normal right biapical brachial indices. 04/04. Patient seen and examined. Underwent laparoscopic cholecystectomy this morning. States he is feeling better. 04/05/24: Patient evaluated bedside today. He notes an improvement in the RUQ pain but still complains of pain in the right foot. Labs today show WBC 11.9, hemoglobin 9.3, sodium 136, BUN 27, creatinine 1.48, ALT 108, ALP 175, glucose 175 Review of systems: Pertinent positives and negatives as discussed in HPI, a complete review of systems was performed and all other systems are negative. Vitals: Signs Reviewed Physical examination: Vital signs reviewed General: nontoxic, no distress, appears at stated age Derm: warm, dry, intact Head: atraumatic, normocephalic, symmetric Eyes: EOMI, anicteric sclera Mouth: no lip lesion, mucus membranes moist Cardiovascular: S1 S2 reg, no murmur Lungs: CTA bilateral, no rhonchi, no rales, no accessory muscle use Abdominal: soft, non-tender to palpataion Extremities: Left foot with findings of distal ulceration and first and second toe, distal ulceration of right first toe. Nontender with some erythema. No apparent cyanosis, clubbing, or pedal edema Neuro: Alert, Oriented, Gross neurological examination did not reveal any focal deficits Psych: well appearing, appropriate affect Assessment/Plan: Patient is a 78-year-old male with CAD with history of CABG who presents for lower extremity wound. # Symptomatic peripheral artery disease of right lower extremity Bilateral foot diabetic ulcers (distal ulceration and first and second toe, distal ulceration of right first toe) Monitor vital signs monitor CBC Continue cefepime, Flagyl Lower extremity ultrasound findings of mild left peripheral vascular disease, normal right biapical brachial indices No emergent surgical intervention at this time Wound care, ID, and vascular surgery following #Hydropic gallbladder due to acute gangrenous cholecystitis #Nausea vomiting Status post laparoscopic cholecystectomy Continue low-fat diet, advance per surgery #NITIN, improving Monitor BMP #Diabetes mellitus, type 2 Monitor blood sugar levels, continue current insulin regimen Chronic Medical Conditions # Essential hypertension Continue lisinopril #Coronary artery disease Continue aspirin F: None E: Replete as required N: Full liquid diet DVT prophylaxis: Heparin 5000 units SQ every 8 hours GI prophylaxis: Famotidine 20 mg p.o. daily Attestation I have seen and examined this patient with my resident , discussed the same with the resident/JOHNSON, and agree with the dictator's assessment and plan as written Dr. Carlos frankel Objective - Vital Signs Vital signs: Vital Signs Temp 98.1 F 04/05/24 07:52 Pulse 70 04/05/24 07:52 Resp 16 04/05/24 07:52 BP 114/73 04/05/24 07:52 Pulse Ox 94 L 04/05/24 07:52 FiO2 Intake & Output 04/04/24 04/05/24 04/05/24 18:59 06:59 18:59 Intake Total 1240 540 Output Total 55 70 Balance 1185 470 Intake: IV 700 Oral 540 540 Output: Drainage 30 70 Right Abdomen 30 70 Estimated Blood Loss 25 Other: # Voids 1 - Labs CBC & Chem 7: 04/05/24 04:51 04/06/24 04:35 Labs: Abnormal Lab Results - Last 24 Hours (Table) 04/04/24 04/04/24 04/04/24 Range/Units 05:07 05:07 12:31 RBC 3.33 L (4.40-5.60) X 10*6/uL Hgb 9.0 L (13.0-17.0) g/dL Hct 29.8 L (39.6-50.0) % MCHC 30.2 L (32.0-37.0) g/dL Neutrophils # 7.72 H (1.80-7.70) X 10*3/uL Sodium (137-145) mmol/L Chloride (98-107) mmol/L Carbon Dioxide (22-30) mmol/L BUN (9-20) mg/dL Creatinine (0.66-1.25) mg/dL Glucose (74-99) mg/dL POC Glucose (mg/dL) 157 H (70-110) mg/dL Hemoglobin A1c 8.9 H (<=6.0) % Calcium (8.4-10.2) mg/dL ALT (4-49) U/L Alkaline Phosphatase (38-126) U/L Total Protein (6.3-8.2) g/dL Albumin (3.5-5.0) g/dL 04/04/24 04/04/24 04/05/24 Range/Units 17:15 20:18 04:51 RBC (4.40-5.60) X 10*6/uL Hgb (13.0-17.0) g/dL Hct (39.6-50.0) % MCHC (32.0-37.0) g/dL Neutrophils # (1.80-7.70) X 10*3/uL Sodium 136 L (137-145) mmol/L Chloride 109 H (98-107) mmol/L Carbon Dioxide 19 L (22-30) mmol/L BUN 27 H (9-20) mg/dL Creatinine 1.48 H (0.66-1.25) mg/dL Glucose 233 H (74-99) mg/dL POC Glucose (mg/dL) 279 H 371 H (70-110) mg/dL Hemoglobin A1c (<=6.0) % Calcium 8.2 L (8.4-10.2) mg/dL ALT 108 H (4-49) U/L Alkaline Phosphatase 175 H (38-126) U/L Total Protein 5.3 L (6.3-8.2) g/dL Albumin 2.2 L (3.5-5.0) g/dL 04/05/24 Range/Units 07:20 RBC (4.40-5.60) X 10*6/uL Hgb (13.0-17.0) g/dL Hct (39.6-50.0) % MCHC (32.0-37.0) g/dL Neutrophils # (1.80-7.70) X 10*3/uL Sodium (137-145) mmol/L Chloride (98-107) mmol/L Carbon Dioxide (22-30) mmol/L BUN (9-20) mg/dL Creatinine (0.66-1.25) mg/dL Glucose (74-99) mg/dL POC Glucose (mg/dL) 175 H (70-110) mg/dL Hemoglobin A1c (<=6.0) % Calcium (8.4-10.2) mg/dL ALT (4-49) U/L Alkaline Phosphatase (38-126) U/L Total Protein (6.3-8.2) g/dL Albumin (3.5-5.0) g/dL Microbiology - Last 24 Hours (Table) 04/01/24 17:24 Blood Culture - Preliminary Blood
--- NOTE | 2024-04-05 15:14 | P.PN ---
Subjective Progress Note Date: 04/05/24 Principal diagnosis: Bilateral lower extremity foot wounds Patient seen and examined. No complaint of pain at the toes. He states that his abdominal issues have improved since his gallbladder surgery. He denies any fevers, chills, chest pain or shortness of breath. Objective - Vital Signs Vital signs: Vital Signs Temp 98.1 F 04/05/24 12:49 Pulse 66 04/05/24 12:49 Resp 17 04/05/24 12:49 BP 115/67 04/05/24 12:49 Pulse Ox 94 L 04/05/24 12:49 FiO2 Intake & Output 04/04/24 04/05/24 04/05/24 18:59 06:59 18:59 Intake Total 1240 540 Output Total 55 70 Balance 1185 470 Intake: IV 700 Oral 540 540 Output: Drainage 30 70 Right Abdomen 30 70 Estimated Blood Loss 25 Other: # Voids 1 - Exam Pleasant cooperative male in no acute distress HEENT is normocephalic atraumatic, extraocular muscles intact Abdomen is soft, nontender nondistended Palpable femoral pulses, DP and PT signal noted bilaterally. Ulcerations noted on the great toe on the right as well as the great toe and second toe on the left. Ulcerations consistent with dry gangrene. No significant edema. There is no active drainage from the wounds. No significant tenderness to palpation. - Labs CBC & Chem 7: 04/05/24 04:51 04/05/24 04:51 Labs: Abnormal Lab Results - Last 24 Hours (Table) 04/04/24 04/04/24 04/05/24 Range/Units 17:15 20:18 04:51 WBC (4.50-10.00) X 10*3/uL RBC (4.40-5.60) X 10*6/uL Hgb (13.0-17.0) g/dL Hct (39.6-50.0) % MCHC (32.0-37.0) g/dL Immature Gran # (0.00-0.04) X 10*3/uL Neutrophils # (1.80-7.70) X 10*3/uL Lymphocytes # (0.90-5.00) X 10*3/uL Eosinophils # (0.04-0.35) X 10*3/uL Sodium 136 L (137-145) mmol/L Chloride 109 H (98-107) mmol/L Carbon Dioxide 19 L (22-30) mmol/L BUN 27 H (9-20) mg/dL Creatinine 1.48 H (0.66-1.25) mg/dL Glucose 233 H (74-99) mg/dL POC Glucose (mg/dL) 279 H 371 H (70-110) mg/dL Calcium 8.2 L (8.4-10.2) mg/dL ALT 108 H (4-49) U/L Alkaline Phosphatase 175 H (38-126) U/L Total Protein 5.3 L (6.3-8.2) g/dL Albumin 2.2 L (3.5-5.0) g/dL 04/05/24 04/05/24 04/05/24 Range/Units 04:51 07:20 12:19 WBC 11.90 H (4.50-10.00) X 10*3/uL RBC 3.41 L (4.40-5.60) X 10*6/uL Hgb 9.3 L (13.0-17.0) g/dL Hct 29.2 L (39.6-50.0) % MCHC 31.8 L (32.0-37.0) g/dL Immature Gran # 0.09 H (0.00-0.04) X 10*3/uL Neutrophils # 10.31 H (1.80-7.70) X 10*3/uL Lymphocytes # 0.78 L (0.90-5.00) X 10*3/uL Eosinophils # 0.02 L (0.04-0.35) X 10*3/uL Sodium (137-145) mmol/L Chloride (98-107) mmol/L Carbon Dioxide (22-30) mmol/L BUN (9-20) mg/dL Creatinine (0.66-1.25) mg/dL Glucose (74-99) mg/dL POC Glucose (mg/dL) 175 H 210 H (70-110) mg/dL Calcium (8.4-10.2) mg/dL ALT (4-49) U/L Alkaline Phosphatase (38-126) U/L Total Protein (6.3-8.2) g/dL Albumin (3.5-5.0) g/dL Microbiology - Last 24 Hours (Table) 04/01/24 17:24 Blood Culture - Preliminary Blood Assessment and Plan Assessment: 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 Long discussion was had with the patient about intervention and due to the fact that he has had 7 weeks of nonhealing wounds at his toes I would recommend catheter directed angiogram and possible intervention below the knee. We did discuss timing for this procedure which does not have to be urgent due to the timeframe and can be seen as an outpatient and scheduled as an outpatient. We will see him in the office next week after he is discharged to plan catheter directed angiogram and balloon angioplasty of the tibial vessels on the left. Okay for discharge from a vascular standpoint.
[2024-04-05 17:28] LABS: Glucose,Whole Blood 147 mg/dL (70-110)
[2024-04-05] MEDS ORDERED: VANCOMYCIN TROUGH DUE 1 EACH MISC MISCELLANE ONE (19:00)
[2024-04-05 19:42] LABS: Glucose,Whole Blood 184 mg/dL (70-110)
[2024-04-06 05:12] LABS: African American GFR (CKD) 56 (>60 ml/min/1.73 sqM); Anion Gap 7 mmol/L; Blood Urea Nitrogen 23 mg/dL (9-20); Calcium 8.2 mg/dL (8.4-10.2); Carbon Dioxide 22 mmol/L (22-30); Chloride 109 mmol/L (98-107); Glucose 79 mg/dL (74-99); Non-African American GFR(CKD) 49 (>60 ml/min/1.73 sqM); Potassium 3.7 mmol/L (3.5-5.1); Sodium 138 mmol/L (137-145)
[2024-04-06 07:10] LABS: Glucose,Whole Blood 68 mg/dL (70-110)
[2024-04-06 07:30] LABS: Glucose,Whole Blood 85 mg/dL (70-110)
[2024-04-06 07:57] VITALS: BP 142/83; PULSE 76; RESP 16; TEMP 98.6
[2024-04-06 09:12] LABS: HCT 31.6 % (39.6-50.0); HGB 10.1 g/dL (13.0-17.0); MCH 27.6 pg (27.0-32.0); MCV 86.3 FL (80.0-97.0); Mean Platelet Volume 10.6 FL (9.5-12.2); NRBC Per 100 WBC 0 X 10*3/uL (0.00-0.01); Platelet Count 236 X 10*3/uL (140-440); RBC 3.66 X 10*6/uL (4.40-5.60); RDW 13.7 % (11.5-14.5)
[2024-04-06 12:10] LABS: Glucose,Whole Blood 209 mg/dL (70-110)
--- NOTE | 2024-04-06 12:56 | P.PN ---
Subjective Progress Note Date: 04/06/24 Patient feels well. He has minimal complaints abdominal pain. On exam vital signs appear stable. Abdomen is soft. Status post laparoscopic cholecystectomy for gangrenous cholecystitis. Patient will be discharged home per the medical service. Objective - Vital Signs Vital signs: Vital Signs Temp 98.6 F 04/06/24 07:10 Pulse 76 04/06/24 07:10 Resp 16 04/06/24 07:10 BP 142/83 04/06/24 07:10 Pulse Ox 96 04/06/24 07:10 FiO2 Intake & Output 04/05/24 04/06/24 04/06/24 18:59 06:59 18:59 Intake Total 540 820 Output Total 70 90 Balance 470 730 Intake: Intake, IV Titration 100 Amount Cefepime 2 gm In Sodium 100 Chloride 0.9% 100 ml @ 200 mls/hr IVPB Q12H [facility] Rx#:[id number] Oral 540 720 Output: Drainage 70 90 Right Abdomen 70 90 Other: # Voids 2 1 - Labs CBC & Chem 7: 04/06/24 04:35 04/06/24 04:35 Labs: Abnormal Lab Results - Last 24 Hours (Table) 04/05/24 04/05/24 04/06/24 Range/Units 17:25 19:41 04:35 RBC (4.40-5.60) X 10*6/uL Hgb (13.0-17.0) g/dL Hct (39.6-50.0) % Chloride 109 H (98-107) mmol/L BUN 23 H (9-20) mg/dL Creatinine 1.40 H (0.66-1.25) mg/dL POC Glucose (mg/dL) 147 H 184 H (70-110) mg/dL Calcium 8.2 L (8.4-10.2) mg/dL 04/06/24 04/06/24 04/06/24 Range/Units 04:35 07:09 12:09 RBC 3.66 L (4.40-5.60) X 10*6/uL Hgb 10.1 L (13.0-17.0) g/dL Hct 31.6 L (39.6-50.0) % Chloride (98-107) mmol/L BUN (9-20) mg/dL Creatinine (0.66-1.25) mg/dL POC Glucose (mg/dL) 68 L 209 H (70-110) mg/dL Calcium (8.4-10.2) mg/dL
--- NOTE | 2024-04-06 13:10 | P.DS ---
Providers Date of admission: 04/01/24 21:37 Expected date of discharge: 04/06/24 Attending physician: Mary Ang Consults: 04/01/24 21:34 Consult Physician Routine Consulting Provider: Mayra Clark Consult Reason/Comments: PAD Do you want consulting provider notified?: Yes, Notify in am Consult Physician Routine Consulting Provider: Eliz Krishna Consult Reason/Comments: Foot wound Do you want consulting provider notified?: Yes, Notify in am 04/02/24 01:12 Consult Physician Routine Consulting Provider: Louie Mantilla Consult Reason/Comments: Hydropic gallbladder Do you want consulting provider notified?: Yes, Notify in am 04/02/24 10:03 Consult Physician Routine Consulting Provider: An Harris Consult Reason/Comments: Nonhealing left lower extremity wound, osteo Do you want consulting provider notified?: Yes Primary care physician: [place] Hospital Course: Discharge diagnosis: Symptomatic right lower extremity Hydrocodone due to acute tenderness cholecystitis Nausea vomiting NITIN, improving Diabetes mellitus, type II Essential hypertension Coronary artery disease Hospital Course: Patient is a 78-year-old male with CAD with history of CABG, diabetes mellitus who presents for lower extremity wound. He states that this has been an ongoing problem for the last 6 to 7 weeks. Patient states he has been seen in [place] for 2 sessions of wound care for his ulcerating wounds of his left and right distal foot and toes. Patient states he had 2 sessions and had been on Bactrim for 10 days which had not improved his foot pain or ulcerations as much as expected. It seems that he is not taking regular medication for CAD other than daily aspirin. Also, patient did have some nausea vomiting with abdominal pain mostly in the right upper quadrant that has since resolved. Currently patient reports absence of fever, chills, chest pain, dyspnea, cough, nausea, vomiting, abdominal pain, dizziness, headache, and dysuria.Initial lab evaluation in ER significant for WBC 12.7, hemoglobin 11.5, sodium 140, bicarb 21, gap 8, BUN 39, creatinine 1.72, glucose 164, AST 80, ALT 288, ALP 320, CRP 22.4.CT angiogram of bilateral lower extremities significant for extensive atherosclerotic disease of lower extremity arterial vessels involving the anterior tibial, posterior tibial and peroneal arteries bilateral with multi focal severe stenosis. Also with gas seen in soft tissues along plantar surface of left foot, likely related to wound. Ultrasound abdominal right upper quadrant significant for hydropic gallbladder fully distended, echogenic sludge with pericholestatic sirisha 04/03/24: Patient seen and examined at bedside, no acute events overnight. Denies pain this morning. He is seen by general surgery who plan on laparoscopic cholecystectomy tomorrow. He is also seen by vascular surgery, and ID is following him at this time. Today's labs WBC 11.3, hemoglobin 9.6, sodium 142, BUN 30, creatinine 1.57, glucose ranging 44-299. Lower extremity ultrasound findings of mild left peripheral vascular disease, normal right biapical brachial indices. 04/04/24. Patient seen and examined. Underwent laparoscopic cholecystectomy this morning. States he is feeling better. 04/05/24: Patient evaluated bedside today. He notes an improvement in the RUQ pain but still complains of pain in the right foot. Labs today show WBC 11.9, hemoglobin 9.3, sodium 136, BUN 27, creatinine 1.48, ALT 108, ALP 175, glucose 175. 04/06/24: Patient examined today. Patient is doing better today. No new complaints. Labs today show hemoglobin 10.1, sodium 138, potassium 3.7, BUN 23, creatinine 1.4, bicarb 22. Vascular surgery recommends outpatient follow up to plan and schedule catheter directed angiogram and balloon angioplasty of the tibial vessels on the left. No emergent surgical intervention at this time. Patient seen at bedside today and is feeling good and excited about discharge. Patient will be discharged today and is given a script for Ceftin and Flagyl for 10 days Patient is given a handout for type 2 diabetes management for adults and is advised to be compliant with medications. Patient is advised to follow-up with PCP in 1-2 days, general surgery in 1 week and vascular surgery in 1 week. Vital signs are reviewed and stable General: nontoxic, no distress, appears at stated age Derm: warm, dry, intact Head: atraumatic, normocephalic, symmetric Eyes: EOMI, anicteric sclera Mouth: no lip lesion, mucus membranes moist Cardiovascular: S1 S2 reg, no murmur Lungs: CTA bilateral, no rhonchi, no rales, no accessory muscle use Abdominal: soft, non-tender to palpataion Extremities: Left foot with findings of distal ulceration and first and second toe, distal ulceration of right first toe. Nontender with some erythema. No apparent cyanosis, clubbing, or pedal edema Neuro: Alert, Oriented, Gross neurological examination did not reveal any focal deficits Psych: well appearing, appropriate affect A total of 30 minutes of time were spent preparing this complex discharge summary. Patient was discharged on 04/06/24 at 1300. Attestation I have seen and examined this patient with my resident , discussed the same with the resident/JOHNSON, and agree with the dictator's assessment and plan as written Dr. Carlos frankel Patient Condition at Discharge: Good Plan - Discharge Summary Discharge Rx Participant: No New Discharge Prescriptions: New cefuroxime axetiL [Ceftin] 500 mg PO BID 10 Days #20 tab metroNIDAZOLE [Flagyl] 500 mg PO TID 10 Days #30 tab Continue Insulin Glargine-Yfgn [Semglee (Yfgn) Pen] 22 unit SQ BID oxyCODONE HCL [Roxicodone] 5 mg PO Q6H PRN PRN Reason: Pain Cholecalciferol [Vitamin D3 (25 Mcg = 1000 Iu)] 25 mcg PO DAILY lisinopriL [Zestril] 5 mg PO DAILY Gabapentin [Neurontin] 100 mg PO BID Aspirin EC [Ecotrin Low Dose] 81 mg PO DAILY Dextrose Chew [Glucose Chew Tab] 16 gm PO DAILY PRN PRN Reason: low blood sugar Acetaminophen [Tylenol] 650 mg PO TID PRN PRN Reason: Pain Discharge Medication List Acetaminophen [Tylenol] 650 mg PO TID PRN 04/01/24 [History] Aspirin EC [Ecotrin Low Dose] 81 mg PO DAILY 04/01/24 [History] Cholecalciferol [Vitamin D3 (25 Mcg = 1000 Iu)] 25 mcg PO DAILY 04/01/24 [History] Dextrose Chew [Glucose Chew Tab] 16 gm PO DAILY PRN 04/01/24 [History] Gabapentin [Neurontin] 100 mg PO BID 04/01/24 [History] Insulin Glargine-Yfgn [Semglee (Yfgn) Pen] 22 unit SQ BID 04/01/24 [History] lisinopriL [Zestril] 5 mg PO DAILY 04/01/24 [History] oxyCODONE HCL [Roxicodone] 5 mg PO Q6H PRN 04/01/24 [History] cefuroxime axetiL [Ceftin] 500 mg PO BID 10 Days #20 tab 04/06/24 [Rx] metroNIDAZOLE [Flagyl] 500 mg PO TID 10 Days #30 tab 04/06/24 [Rx] Follow up Appointment(s)/Referral(s): Louie Mantilla MD [Medical Doctor] - 1 Week (please call to schedule a follow up appointment) Jefry Valdez DO [STAFF PHYSICIAN] - 1 Week (please call the office to schedule a follow up appointment.) An Hraris MD [STAFF PHYSICIAN] - 1 [facility] - 1-2 days (the office will call with a follow up appointment.) Patient Instructions/Handouts: Cefuroxime (By mouth), Metronidazole (By mouth), Type 2 Diabetes Management for Adults (DC) Discharge Disposition: HOME SELF-CARE
--- NOTE | 2024-04-06 15:00 | P.PN ---
Subjective Progress Note Date: 04/05/24 Principal diagnosis: Reason for follow-up is left foot wound cellulitis and cholecystitis Patient is a 78-year-old male with a past medical history significant for diabetes mellitus hypertension presenting to the hospital for evaluation for evaluation of bilateral big toe wounds cellulitis with evidence of PAD on initial testing. Patient is status post laparoscopic cholecystectomy with concern for acute gangrenous cholecystitis completed on 04/04/2024. On today's evaluation that is 04/05/2024, patient has been afebrile, patient is breathing comfortably and is currently on room air, patient denies having any significant cough no chest pain, patient denies nausea vomiting abdominal pain is currently controlled still some pain to the left shoulder but no worsening. Patient white count is 11.90 creatinine is 1.48 Objective - Vital Signs Vital signs: Vital Signs Temp 98.1 F 04/05/24 12:49 Pulse 66 04/05/24 12:49 Resp 17 04/05/24 12:49 BP 115/67 04/05/24 12:49 Pulse Ox 94 L 04/05/24 12:49 FiO2 Intake & Output 04/04/24 04/05/24 04/05/24 18:59 06:59 18:59 Intake Total 1240 540 Output Total 55 70 Balance 1185 470 Intake: IV 700 Oral 540 540 Output: Drainage 30 70 Right Abdomen 30 70 Estimated Blood Loss 25 Other: # Voids 1 - Exam GENERAL DESCRIPTION: An elderly male lying in bed in no distress RESPIRATORY SYSTEM: Unlabored breathing , decreased breath sounds at bases HEART: S1 S2 regular rate and rhythm , ABDOMEN: Soft , mild tenderness EXTREMITIES: Foot wounds are currently dressed - Labs CBC & Chem 7: 04/06/24 04:35 04/06/24 04:35 Labs: Abnormal Lab Results - Last 24 Hours (Table) 04/04/24 04/04/24 04/05/24 Range/Units 17:15 20:18 04:51 WBC (4.50-10.00) X 10*3/uL RBC (4.40-5.60) X 10*6/uL Hgb (13.0-17.0) g/dL Hct (39.6-50.0) % MCHC (32.0-37.0) g/dL Immature Gran # (0.00-0.04) X 10*3/uL Neutrophils # (1.80-7.70) X 10*3/uL Lymphocytes # (0.90-5.00) X 10*3/uL Eosinophils # (0.04-0.35) X 10*3/uL Sodium 136 L (137-145) mmol/L Chloride 109 H (98-107) mmol/L Carbon Dioxide 19 L (22-30) mmol/L BUN 27 H (9-20) mg/dL Creatinine 1.48 H (0.66-1.25) mg/dL Glucose 233 H (74-99) mg/dL POC Glucose (mg/dL) 279 H 371 H (70-110) mg/dL Calcium 8.2 L (8.4-10.2) mg/dL ALT 108 H (4-49) U/L Alkaline Phosphatase 175 H (38-126) U/L Total Protein 5.3 L (6.3-8.2) g/dL Albumin 2.2 L (3.5-5.0) g/dL 04/05/24 04/05/24 04/05/24 Range/Units 04:51 07:20 12:19 WBC 11.90 H (4.50-10.00) X 10*3/uL RBC 3.41 L (4.40-5.60) X 10*6/uL Hgb 9.3 L (13.0-17.0) g/dL Hct 29.2 L (39.6-50.0) % MCHC 31.8 L (32.0-37.0) g/dL Immature Gran # 0.09 H (0.00-0.04) X 10*3/uL Neutrophils # 10.31 H (1.80-7.70) X 10*3/uL Lymphocytes # 0.78 L (0.90-5.00) X 10*3/uL Eosinophils # 0.02 L (0.04-0.35) X 10*3/uL Sodium (137-145) mmol/L Chloride (98-107) mmol/L Carbon Dioxide (22-30) mmol/L BUN (9-20) mg/dL Creatinine (0.66-1.25) mg/dL Glucose (74-99) mg/dL POC Glucose (mg/dL) 175 H 210 H (70-110) mg/dL Calcium (8.4-10.2) mg/dL ALT (4-49) U/L Alkaline Phosphatase (38-126) U/L Total Protein (6.3-8.2) g/dL Albumin (3.5-5.0) g/dL Microbiology - Last 24 Hours (Table) 04/01/24 17:24 Blood Culture - Preliminary Blood Assessment and Plan (1) Cellulitis Current Visit: Yes Status: Acute Code(s): L03.90 - CELLULITIS, UNSPECIFIED SNOMED Code(s): 219703913 (2) Diabetic foot ulcer Current Visit: Yes Status: Acute Code(s): E11.621 - TYPE 2 DIABETES MELLITUS WITH FOOT ULCER; L97.509 - NON-PRESSURE CHRONIC ULCER OTH PRT UNSP FOOT W UNSP SEVERITY SNOMED Code(s): 827084223 (3) Acute cholecystitis Current Visit: Yes Status: Acute Code(s): K81.0 - ACUTE CHOLECYSTITIS SNOMED Code(s): 08923451 Plan: 1patient with a nonhealing wound to bilateral feet area more marked on the left foot right side in this patient who did have a significant PAD concerning for nonhealing of his wound and failure" patient oral antibiotic therapy 2-patient did have a CT abdominal pelvis concerning for cholecystitis and is status post cholecystectomy for acute given his cholecystitis 3-patient is afebrile, white count slightly up today likely reactive postsurgery patient will be treated cefepime and Flagyl and monitor clinical course closely Dictation was produced using [employer] dictation software. please excuse any grammatical, word or spelling errors. Time with Patient: Less than 30
--- NOTE | 2024-04-06 15:01 | P.PN ---
Subjective Progress Note Date: 04/06/24 Principal diagnosis: Reason for follow-up is left foot wound cellulitis and cholecystitis Patient is a 78-year-old male with a past medical history significant for diabetes mellitus hypertension presenting to the hospital for evaluation for evaluation of bilateral big toe wounds cellulitis with evidence of PAD on initial testing. Patient is status post laparoscopic cholecystectomy with concern for acute gangrenous cholecystitis completed on 04/04/2024. On today's evaluation that is 04/06/2024, Patient is afebrile this morning patient denies having any chest pain shortness of breath or cough, the patient is currently on room air, patient abdominal pain is currently controlled denies any nausea no vomiting or diarrhea or any worsening pain to the left foot. Patient did have a creatinine 1.40 no CBC was done today blood culture has been pending Objective - Vital Signs Vital signs: Vital Signs Temp 98.6 F 04/06/24 07:10 Pulse 76 04/06/24 07:10 Resp 16 04/06/24 07:10 BP 142/83 04/06/24 07:10 Pulse Ox 96 04/06/24 07:10 FiO2 Intake & Output 04/05/24 04/06/24 04/06/24 18:59 06:59 18:59 Intake Total 540 820 Output Total 70 90 Balance 470 730 Intake: Intake, IV Titration 100 Amount Cefepime 2 gm In Sodium 100 Chloride 0.9% 100 ml @ 200 mls/hr IVPB Q12H [facility] Rx#:[id number] Oral 540 720 Output: Drainage 70 90 Right Abdomen 70 90 Other: # Voids 2 1 - Exam GENERAL DESCRIPTION: An elderly male lying in bed in no distress RESPIRATORY SYSTEM: Unlabored breathing , decreased breath sounds at bases HEART: S1 S2 regular rate and rhythm , ABDOMEN: Soft , mild tenderness EXTREMITIES: Foot wounds are currently dressed - Labs CBC & Chem 7: 04/06/24 04:35 04/06/24 04:35 Labs: Abnormal Lab Results - Last 24 Hours (Table) 04/05/24 04/05/24 04/05/24 Range/Units 12:19 17:25 19:41 RBC (4.40-5.60) X 10*6/uL Hgb (13.0-17.0) g/dL Hct (39.6-50.0) % Chloride (98-107) mmol/L BUN (9-20) mg/dL Creatinine (0.66-1.25) mg/dL POC Glucose (mg/dL) 210 H 147 H 184 H (70-110) mg/dL Calcium (8.4-10.2) mg/dL 04/06/24 04/06/24 04/06/24 Range/Units 04:35 04:35 07:09 RBC 3.66 L (4.40-5.60) X 10*6/uL Hgb 10.1 L (13.0-17.0) g/dL Hct 31.6 L (39.6-50.0) % Chloride 109 H (98-107) mmol/L BUN 23 H (9-20) mg/dL Creatinine 1.40 H (0.66-1.25) mg/dL POC Glucose (mg/dL) 68 L (70-110) mg/dL Calcium 8.2 L (8.4-10.2) mg/dL Assessment and Plan (1) Cellulitis Current Visit: Yes Status: Acute Code(s): L03.90 - CELLULITIS, UNSPECIFIED SNOMED Code(s): 825718259 (2) Diabetic foot ulcer Current Visit: Yes Status: Acute Code(s): E11.621 - TYPE 2 DIABETES MELLITUS WITH FOOT ULCER; L97.509 - NON-PRESSURE CHRONIC ULCER OTH PRT UNSP FOOT W UNSP SEVERITY SNOMED Code(s): 182547476 (3) Acute cholecystitis Current Visit: Yes Status: Acute Code(s): K81.0 - ACUTE CHOLECYSTITIS SNOMED Code(s): 61641700 Plan: 1patient with a nonhealing wound to bilateral feet area more marked on the left foot right side in this patient who did have a significant PAD concerning for nonhealing of his wound and failure of out patient oral antibiotic therapy 2-patient did have a CT abdominal pelvis concerning for cholecystitis and is status post cholecystectomy for acute given his cholecystitis 3-patient is afebrile, feeling better vascular surgeon recommending outpatient workup for his lower extremity PAD as well as wounds I will consider 10-day course of oral Ceftin and Flagyl on discharge patient was advised if he develops any fever or worsening pain swelling redness to the left foot or drainage need to go back to the ER Dictation was produced using dragon dictation software. please excuse any grammatical, word or spelling errors. Time with Patient: Less than 30
== END 2024-04-06 15:20 | disposition home or self-care (01) | DRG 418 ==
LOC: EC 14:43 → 3SCARD 21:37 → 5NMEDONC 04-02 07:19
PROVIDERS: ADMIT Hospitalist; ATTEND Hospitalist
PROC: 0FT44ZZ Resection of Gallbladder, Percutaneous Endoscopic Approach (ICD-10-PCS; principal; 2024-04-04 07:10)
DX: K80.42 Calculus of bile duct with acute cholecystitis without obstruction (principal); E11.52 Type 2 diabetes mellitus with diabetic peripheral angiopathy with gangrene; K82.1 Hydrops of gallbladder; N17.9 Acute kidney failure, unspecified; I96 Gangrene, not elsewhere classified; M86.672 Other chronic osteomyelitis, left ankle and foot; M86.671 Other chronic osteomyelitis, right ankle and foot; L03.116 Cellulitis of left lower limb; L03.115 Cellulitis of right lower limb; K82.A1 Gangrene of gallbladder in cholecystitis; E11.621 Type 2 diabetes mellitus with foot ulcer; N18.30 Chronic kidney disease, stage 3 unspecified; I12.9 Hypertensive chronic kidney disease with stage 1 through stage 4 chronic kidney disease, or unspecified chronic kidney disease; E11.22 Type 2 diabetes mellitus with diabetic chronic kidney disease; I25.10 Atherosclerotic heart disease of native coronary artery without angina pectoris; L97.519 Non-pressure chronic ulcer of other part of right foot with unspecified severity; L97.529 Non-pressure chronic ulcer of other part of left foot with unspecified severity; E11.69 Type 2 diabetes mellitus with other specified complication; Z95.1 Presence of aortocoronary bypass graft; Z79.82 Long term (current) use of aspirin; Z79.899 Other long term (current) drug therapy; Z79.4 Long term (current) use of insulin; Z87.891 Personal history of nicotine dependence
CPT/HCPCS: 36415; 74176; 76705; 80048; 80053; 80061; 80202; 83036; 83605; 85025; 85027; 85610; 85730; 86140; 87040; 88304; 93923; 96365; 96366; 96367; 96368; 96372; 99285